=== PATIENT | male | born 1955 | race African-American/Black ===

== ENCOUNTER → 2021-06-12 09:04 | Outpatient (AMBR) | payer OTHER, SELFPAY ==
--- NOTE | 2021-06-05 10:07 | PTNOTE_ITS ---
PT OP Initial Eval Patient Information Visit Reasons: right shoulder post op Medical Diagnosis: Z47.89 Treatment Dx #1: Dec R shoulder ROM Start of Care: 06/05/21 Date of Onset: 04/25/21 Initial Assessment Subjective Pt is 65 yr old male s/p Right shoulder biceps tendinopathy with SLAP tear and right shoulder subacromial impingement about 5 weeks ago. Pt is actively moving the R shoulder with low pain level that comes and goes. He is a side sleeper and can't sleep on the R side. 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 Objective R shoulder AROM: FF 120 deg Abd 90 deg ER 70 deg Hand behind back: to R glute Strength: NT but estimated to be 3-/5 all planes PROM: FF 125 deg Assessment Pt presentation consistent with post op labral repair of R shoulder. Pt has improving AROM with low tissue irritability until he gets to first resistance which is limited by pain. Pt requires skilled therapy to improve ROM, strength and function and has good rehab potential. Short Term and Physiotherapy Aide Goals 1. Ind with HEP 2. Improved AROM of R shoulder to 150 deg FF, 145 deg abduction and 90 deg ER 3. 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 Pt will reach OH x10 with <=4/10 pain Treatment Plan 1. Manual therapy 2. Therex 3. Modalities as indicated, moist heat pack, ice, electrical stimulation? Frequency and Duration 2x a week for 8 weeks Certification Dates: 06/05/21 to 09/03/21 Office Procedures PT Treatments PT Date of Service: 06/05/21 OP PT Eval Mod Complex 30 minutes: Yes
--- NOTE | 2021-06-06 08:52 | PT.ODAYNRPT ---
PT Outpatient Daily Note Date of Service: 06/06/21 OP Daily Note Visit Reasons: right shoulder post op Outpatient Physical Therapy Treatment Date: 06/06/21 Subjective: Pt reports feeling no pain and shoulder is feeling better at initial treatment. Objective: See flow chart for therex. Assessment: Pt tolerated finger ladder with slight pain coming down. Pt required breaks in between therex. Pt had good response to ice pack. Plan: Cont POC. Length of Time (minutes) of Treatment: 30 Minutes Office Procedures PT Treatments PT Date of Service: 06/05/21 OP PT Eval Mod Complex 30 minutes: Yes PT Treatments PT Date of Service: 06/06/21 Therapeutic Exercise 30 minutes: Yes
--- NOTE | 2021-06-12 10:36 | PT.ODAYNRPT ---
PT Outpatient Daily Note Date of Service: 06/12/21 OP Daily Note Visit Reasons: right shoulder post op Outpatient Physical Therapy Treatment Date: 06/12/21 Subjective: Pt reports same as previous visit. Objective: See flow chart for therex. Assessment: Pt has shown better ROM today with pulleys and finger ladders. Pt had good response to ice pack. Pt required multiple rest breaks in between therex. Plan: Cont POC per PT. Length of Time (minutes) of Treatment: 30 Minutes Office Procedures PT Treatments PT Date of Service: 06/05/21 OP PT Eval Mod Complex 30 minutes: Yes PT Treatments PT Date of Service: 06/12/21 Therapeutic Exercise 30 minutes: Yes PT Treatments PT Date of Service: 06/06/21 Therapeutic Exercise 30 minutes: Yes
== END ==
PROVIDERS: PCP Internal Medicine; Referring Provider Internal Medicine; Visit Provider Orthopaedic Surgery
DX: Z47.89 Encounter for other orthopedic aftercare (principal); M25.511 Pain in right shoulder; I10 Essential (primary) hypertension; E11.9 Type 2 diabetes mellitus without complications
CPT/HCPCS: 97110; 97162

== ENCOUNTER 2021-06-18 08:56 | Outpatient (AMBR) | payer OTHER, SELFPAY ==
--- NOTE | 2021-06-12 10:36 | PT.ODAYNRPT ---
PT Outpatient Daily Note Date of Service: 06/12/21 OP Daily Note Visit Reasons: right shoulder post op Outpatient Physical Therapy Treatment Date: 06/12/21 Subjective: Pt reports same as previous visit. Objective: See flow chart for therex. Assessment: Pt has shown better ROM today with pulleys and finger ladders. Pt had good response to ice pack. Pt required multiple rest breaks in between therex. Plan: Cont POC per PT. Length of Time (minutes) of Treatment: 30 Minutes
--- NOTE | 2021-06-18 13:02 | PT.ODAYNRPT ---
PT Outpatient Daily Note Date of Service: 06/18/21 OP Daily Note Visit Reasons: RIGHT SHOULDER POST OP Outpatient Physical Therapy Treatment Date: 06/18/21 Subjective: Pt reports shoulder isn't able to move as well at initial treatment. Pt reports shoulder feels more mobile at end of session. Objective: See flow chart for therex. Assessment: Pt tolerated therex well w/ minimal complaints of pain. Pt required multiple rest breaks and was able to complete reps. Pt R shoulder had good response to hot pack before therex. Plan: Cont POC per PT. Length of Time (minutes) of Treatment: 30 Minutes Office Procedures PT Treatments PT Date of Service: 06/18/21 Therapeutic Exercise 30 minutes: Yes
== END 2021-07-08 23:59 | disposition home or self-care (01) ==
PROVIDERS: PCP Orthopaedic Surgery; Referring Provider Orthopaedic Surgery; Visit Provider Orthopaedic Surgery
DX: Z47.89 Encounter for other orthopedic aftercare (principal); M25.511 Pain in right shoulder; I10 Essential (primary) hypertension; E11.9 Type 2 diabetes mellitus without complications
CPT/HCPCS: 97110

== ENCOUNTER 2021-09-18 08:03 | Outpatient (AMBR) | payer OTHER, SELFPAY ==
--- NOTE | 2021-09-11 08:12 | PT.OIERPT ---
PT OP Initial Eval Patient Information Visit Reasons: right shoulder pain Medical Diagnosis: M75.10 Treatment Dx #1: R shoulder pain Start of Care: 09/11/21 Date of Onset: 04/25/21 Initial Assessment Subjective Pt is 66 yr old male s/p Right shoulder biceps tendinopathy with SLAP tear and right shoulder subacromial impingement about 4.5 months ago. Pt is actively moving the R shoulder with high pain level especially with fast movements. He is a side sleeper and can't sleep on the R side. PMH: HTN, OA, DM Imaging: Xray of R shoulder in EMR Pt goal: to be able to reach up and strengthen R shoulder Objective R shoulder AROM: Strength: FF 90 deg 3+/5 Abd? 90 deg 3+/5 ER 70 deg Hand behind back: to R glute PROM: FF 105 deg Assessment Pt presentation consistent with adhesive capsulitis of R shoulder secondary to labral repair. ROM is limited in capsular pattern. Pt has improving AROM with low tissue irritability until he gets to first resistance which is limited by pain. Pt requires skilled therapy to improve ROM, strength and function and has good rehab potential. Pt encouraged to buy over door shoulder pulleys for home use. Short Term and Superintendent Drivers Goals 1. Ind with HEP 2. Improved AROM of R shoulder to 130 deg FF, 125 deg abduction and 90 deg ER 3. 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 Pt will reach OH x10 with <=4/10 pain Treatment Plan 1. Manual therapy 2. Therex 3. Modalities as indicated, moist heat pack, ice, electrical stimulation? Frequency and Duration 2x a week for 8 weeks Certification Dates: 09/11/21 to 12/08/21 Office Procedures PT Treatments PT Date of Service: 09/11/21 OP PT Eval Mod Complex 30 minutes: Yes
--- NOTE | 2021-09-12 18:19 | PT.ODAYNRPT ---
PT Outpatient Daily Note Date of Service: 09/12/21 OP Daily Note Visit Reasons: right shoulder pain Outpatient Physical Therapy Treatment Date: 09/12/21 Subjective: Same as time of eval Objective: See F/S for therex MT: PPM to first resistance x7' abd, FF, Erot Assessment: Pt has pain at first resistance with manual therapy but good improvement with PROM into ERot. Plan: Improve ROM of R shoulder Length of Time (minutes) of Treatment: 30 Minutes Office Procedures PT Treatments PT Date of Service: 09/12/21 Therapeutic Exercise 30 minutes: Yes PT Treatments PT Date of Service: 09/11/21 OP PT Eval Mod Complex 30 minutes: Yes
--- NOTE | 2021-09-18 10:41 | PT.ODAYNRPT ---
PT Outpatient Daily Note Date of Service: 09/18/21 OP Daily Note Visit Reasons: right shoulder pain Outpatient Physical Therapy Treatment Date: 09/18/21 Subjective: The R shoulder is hurting when he reaches up. Objective: See F/S for therex MT: PPM to first resistance x7' abd, FF, Erot Assessment: Pt has pain at first resistance with manual therapy but good improvement with PROM into ERot to be able to put hand behind head. Plan: Improve ROM of R shoulder Length of Time (minutes) of Treatment: 30 Minutes Office Procedures PT Treatments PT Date of Service: 09/12/21 Therapeutic Exercise 30 minutes: Yes PT Treatments PT Date of Service: 09/18/21 Therapeutic Exercise 30 minutes: Yes PT Treatments PT Date of Service: 09/11/21 OP PT Eval Mod Complex 30 minutes: Yes
--- NOTE | 2021-11-29 16:16 | PT.ODS1RPT ---
PT OP Progress/Discharge Note Date of Service: 11/29/21 Progress Note/DC Note Progress Note/Discharge Note: DC Note Patient Information Visit Reasons: right shoulder pain Service Continue Service or Discharge: Discharge Discharge Date: 11/29/21 Status Assessment: Pt attended the initial evaluation and 2 Rx visits and never returned or called to schedule a follow-up appointment within the past 30 days. Pt?s attendance is not consistent enough to make progress with goals. Pt will be D/C'd according to non-compliance with attendance policy. Plan: D/C Office Procedures PT Treatments PT Date of Service: 09/12/21 Therapeutic Exercise 30 minutes: Yes PT Treatments PT Date of Service: 09/18/21 Therapeutic Exercise 30 minutes: Yes PT Treatments PT Date of Service: 09/11/21 OP PT Eval Mod Complex 30 minutes: Yes
== END 2021-10-08 23:59 | disposition home or self-care (01) ==
PROVIDERS: PCP Orthopaedic Surgery; Referring Provider Orthopaedic Surgery; Visit Provider Orthopaedic Surgery
DX: M25.511 Pain in right shoulder (principal)
CPT/HCPCS: 97110; 97162

== ENCOUNTER 2024-12-16 10:49 | Day surgery (SDC) | payer OTHER, SELFPAY ==
[2024-12-14 15:21] VITALS: BMI 43.1
--- NOTE | 2024-12-15 11:43 | EKG_ITS ---
[facility] Test Date: 2024-12-15 Pat Name: QUANG HERNANDEZ Department: Room: - Gender: Male Biometrics Technician: LYNETTE : 1955 Requested By: Roque Gonzalez Order Number: [id number] Reading MD: Roque Gonzalez Measurements Intervals [place] Rate: 67 P: [place]: QRS: -3 QRSD: 100 T: 50 QT: 398 QTc: 423 Interpretive Statements SUPRAVENTRICULAR RHYTHM PROBABLE INFERIOR MYOCARDIAL INFARCTION , PROBABLY OLD [35 ms Q WAVE IN II/aVF] Compared to ECG 03/20/2021 12:20:17 Supraventricular rhythm now present Sinus bradycardia no longer present Sinus arrhythmia no longer present First degree AV block no longer present Myocardial infarct finding still present /store/S0/[id number]/[id number].pdf
[2024-12-15 12:30] LABS: Basophils % (Auto) 0 % (0-2.5); Eosinophils # (Auto) 0.2 Thou/mm3 (0.0-0.5); Eosinophils % (Auto) 2 % (0-10); Hematocrit 40.3 % (41.0-53.0); Hemoglobin 13.3 g/dL (13.5-16.0); Immature Granulocytes % (Auto) 0 % (0-0); Immature Granulocytes Auto 0.02 Thou/mm3 (0.00-0.00); Lymphocytes # (Auto) 1.5 Thou/mm3 (1.0-4.8); Lymphocytes % (Auto) 19 % (10-50); Mean Corpuscular Hemoglobin 28.9 pg (25.0-35.0); Mean Corpuscular Volume 87 fL (80-100); Monocytes # (Auto) 0.6 Thou/mm3 (0.0-0.8); Monocytes % (Auto) 8 % (0-12); Neutrophils # (Auto) 5.5 Thou/mm3 (1.8-7.7); Neutrophils % (Auto) 70 % (37-80); Nucleated Red Blood Cell % 0 /100 WBC (0); Platelet Count 173 Thou/mm3 (140-440); RDW Standard Deviation 42.6 fL (35.1-43.9); Red Blood Count 4.61 Miln/mm3 (4.50-5.90); White Blood Count 7.8 Thou/mm3 (3.8-10.6)
[2024-12-15 12:36] LABS: Anion Gap 6 (7-16); BUN/Creatinine Ratio 14 Ratio (12-20); Blood Urea Nitrogen 19 mg/dL (9-23); Carbon Dioxide 26.9 mMol/L (20.0-31.0); Chloride 104 mMol/L (98-107); Creatinine (Component) 1.4 mg/dL (0.6-1.3); Estimated Creatinine Clearance 76.6 mL/min (>60); Glucose 239 mg/dL (74-106); Osmolality,Calculated 284 (275-295); Sodium 137 mMol/L (136-145); eGFR 54 See Note
[2024-12-15 12:37] LABS: Partial Thromboplastin Time 30.6 Seconds (22.0-36.0); Prothrombin Time 10.9 Seconds (9.0-12.2)
[2024-12-16] VITALS (12 sets, daily range): BP systolic 107–154; BP diastolic 64–93; PULSE 53–71; RESP 12–21; TEMP 36.2–36.8; O2SAT 95–99; BMI 42.4
--- NOTE | 2024-12-16 16:28 | PC.NURSE ---
1437 patient is awake, alert, breathing unlabored, s/p LHC by Dr. Gonzalez. TR band present to right wrist, no bleeding or hematoma noted. Report received from Sun[facility] LOOMIS, Right radial [facility] unsuccesful. Pt has dressing to right groin, no bleeding or hematoma noted, patient had angioseal closure device and can be discharged home 2hrs post groin hemostasis and 1hr post TR band removal. 1610 TR band removed to right wrist, no bleeding or hematoma noted. pt ate sandwitch with no nausea or vomiting
--- NOTE | 2024-12-16 17:08 | ESOP_ITS ---
Cardiac Cath Procedure Procedure Name Date of procedure: 12/16/2024 HEALTH SUPPORT SPECIALIST: Roque Gonzalez MD PROCEDURE PERFORMED: 1. Left heart cardiac catheterization including right, left coronary angiograms and left ventriculogram 2. Ultrasound-guided access of the right radial artery and right femoral artery. 3. Conscious sedation for 30 minutes. Procedure Narrative HISTORY AND INDICATIONS: A 69-year-old male with PMHx of moderate to severe CAD in LAD and RCA by [facility] 12/16/24, HTN, DM, history of smoking, HLD, depression, osteoarthritis and BPH. Patient initially presented to my office for evaluation of shortness of breath. Patient had ischemic work up and showed decreased uptake in the inferior and inferoapical segments, which are worse with stress compared to the rest, patient was brought in for an elective cardiac catheterization. Patient was explained the risk benefits and alternatives of performing a left heart cardiac catheterization including the risk of bleeding, heart attack, stroke and in detail and the agreeable for the procedure. Consent signed, placed in the chart and H&P updated. DESCRIPTION OF PROCEDURE: The patient was brought to the cardiac catheterization lab and all asceptic precautions were followed. Patient was given 1 Mg of Vers ed and 50 mcg of fentanyl for moderate conscious sedation. 2 mL of lidocaine was given in the right wrist. The right radial artery was accessed via the ultrasound guidance as well as micropuncture technique. A 6 [place] glide sheath was introduced. We then used a 5 [place] TIG 4 catheter to perform left ventriculogram. We were unable to get coronary angiogram and groin access was pursued. 10 mL of lidocaine was given in the right groin. The right femoral artery was accessed via the ultrasound guidance as well as micropuncture technique. A 5 [place] glide sheath was introduced. We then used a 5 [place] FL 4 and FR 4 catheter to perform right and left coronary angiogram. 1. Left ventricular ejection fraction was normal at 60 to 65% without any regional wall motion abnormalities. LVEDP was normal at 9 mmHg. There was no significant transvalvular aortic gradient. 2. Right dominant circulation 3. Left main artery is a large-caliber vessel without any significant stenosis. 4. LAD is a large sized artery with a medium size diagonal and without show any significant disease. 5. LCx is a large sized artery with medium OM1 and small OM2 without any significant disease. 6. RCA is a large artery with medium RPDA and RPL without any significant disease. A radial band was used to achieve the hemostasis of the right radial artery access. A femoral angioseal device was used to achieve the hemostasis of the right femoral artery access. Patient will be monitored in the cardiac tank car loader for the next 2 to 3 hours and will be discharged home / telemetry later today if hemodynamically stable. Complications: None Specimens: None Blood loss: Estimated 5-10 ml Summary/findings: 1. Abnornal Stress test: 2. LVEF was normal at 60-65% and normal LVEDP of 10 mmHg. No transvalvular aortic gradient. Recommendations: 1. Recommended aggressive risk factor modification and aggressive medical treatment 2. Recommended no lifting more than 5 pounds for next 7-10 days and follow up in my office in 7 days. Roque Gonzalez MD Interventional Cardiology.
--- NOTE | 2024-12-16 17:40 | PC.NURSE ---
1738 patient is awake, alert, breathing unlabored, dressing to right wrist and right groin dry with no bleeding or hematoma. patient able to eat sandwich with no nausea or vomiting, able to ambulate to bathroom and void, meets discharge criteria, discharge instructions given to patient and friend stephen, patient discharged home in wheelchair with all belongings.
== END 2024-12-16 17:38 | disposition home or self-care (01) ==
PROVIDERS: PCP Internal Medicine; Referring Provider Internal Medicine Cardiovascular Disease; Visit Provider Internal Medicine Cardiovascular Disease
PROC: (CPT 75600; principal; 2024-12-16 12:00)
DX: I25.118 Atherosclerotic heart disease of native coronary artery with other forms of angina pectoris (principal); E11.9 Type 2 diabetes mellitus without complications; E78.5 Hyperlipidemia, unspecified; I10 Essential (primary) hypertension; N40.0 Benign prostatic hyperplasia without lower urinary tract symptoms; E66.01 Morbid (severe) obesity due to excess calories; Z68.42 Body mass index [BMI] 45.0-49.9, adult; Z01.810 Encounter for preprocedural cardiovascular examination
CPT/HCPCS: 93458; 36415; 80048; 85025; 85610; 85730; 93005; 99152; 99153; A4649; C1760; C1769; C1887; C1894; J0171; J0461; J1643; J2250; J2310; J3010; J3490; J7050; Q9967; J2305

== ENCOUNTER 2025-01-26 11:52 | Inpatient (IN) | payer OTHER, MEDICARE, SELFPAY ==
[2025-01-24 12:36] VITALS: BMI 43.1
--- NOTE | 2025-01-25 07:00 | EKG_ITS ---
[facility] Test Date: 2025-01-25 Pat Name: QUANG HERNANDEZ Department: Room: - Gender: Male Multi Sensor Operator: BERNARD : 1955 Requested By: Roque Gonzalez Order Number: [id number] Reading MD: Roque Gonzalez Measurements Intervals [place] Rate: 65 P: 50 NV: 246 QRS: 40 QRSD: 95 T: 30 QT: 378 QTc: 393 Interpretive Statements SINUS RHYTHM WITH FIRST DEGREE AV BLOCK LOW QRS VOLTAGE IN PRECORDIAL LEADS [QRS DEFLECTION < 1.0 mV IN CHEST LEADS] INCOMPLETE RIGHT BUNDLE BRANCH BLOCK [90+ ms QRS DURATION, TERMINAL R IN V1/V2, 40+ ms S IN I/aVL/V4/V5/V6] Compared to ECG 12/15/2024 12:16:58 First degree AV block now present Low QRS voltage now present Incomplete right bundle-branch block now present Supraventricular rhythm no longer present Myocardial infarct finding no longer present /store/S0/[id number]/[id number].pdf
[2025-01-25 11:57] LABS: Basophils % (Auto) 1 % (0-2.5); Eosinophils # (Auto) 0.2 Thou/mm3 (0.0-0.5); Eosinophils % (Auto) 3 % (0-10); Hematocrit 36.4 % (41.0-53.0); Hemoglobin 12.3 g/dL (13.5-16.0); Immature Granulocytes % (Auto) 1 % (0-0); Immature Granulocytes Auto 0.03 Thou/mm3 (0.00-0.00); Lymphocytes # (Auto) 1.2 Thou/mm3 (1.0-4.8); Lymphocytes % (Auto) 19 % (10-50); Mean Corpuscular HGB Conc 33.8 g/dl (31.0-37.0); Mean Corpuscular Hemoglobin 29.2 pg (25.0-35.0); Mean Corpuscular Volume 87 fL (80-100); Monocytes # (Auto) 0.5 Thou/mm3 (0.0-0.8); Monocytes % (Auto) 8 % (0-12); Neutrophils # (Auto) 4.5 Thou/mm3 (1.8-7.7); Neutrophils % (Auto) 70 % (37-80); Nucleated Red Blood Cell % 0 /100 WBC (0); Platelet Count 164 Thou/mm3 (140-440); RDW Standard Deviation 41.4 fL (35.1-43.9); Red Blood Count 4.21 Miln/mm3 (4.50-5.90); White Blood Count 6.4 Thou/mm3 (3.8-10.6)
[2025-01-25 12:05] LABS: Anion Gap 10 (7-16); BUN/Creatinine Ratio 15 Ratio (12-20); Blood Urea Nitrogen 21 mg/dL (9-23); Calcium 8.7 mg/dL (8.3-10.6); Carbon Dioxide 25.4 mMol/L (20.0-31.0); Chloride 105 mMol/L (98-107); Creatinine (Component) 1.4 mg/dL (0.6-1.3); Estimated Creatinine Clearance 76.6 mL/min (>60); Glucose 149 mg/dL (74-106); Osmolality,Calculated 285 (275-295); Partial Thromboplastin Time 30.1 Seconds (22.0-36.0); Potassium 3.7 mMol/L (3.4-5.1); Prothrombin Time 10.9 Seconds (9.0-12.2); Sodium 140 mMol/L (136-145); eGFR 54 See Note
[2025-01-26] VITALS (23 sets, daily range): BP systolic 128–170; BP diastolic 75–105; PULSE 59–85; RESP 13–97; TEMP 36.2–36.7; O2SAT 94–99; BMI 43.1
--- NOTE | 2025-01-26 07:30 | CHAP ---
Prayed with patient before his procedure.
[2025-01-26] MEDS: Aspirin 325 MG TABLET PO (07:39)
[2025-01-26] MEDS: EPTIFIBATIDE IVPB 75 MG/100 ML VIAL 24.394 MG IV (11:15)
[2025-01-26] MEDS: EPTIFIBATIDE 22.6 MG IV (11:16)
[2025-01-26] MEDS: SODIUM CHLORIDE 0.45 % 500 ML 100 ML IV ×2 (11:49→17:45)
[2025-01-26] MEDS: ONDANSETRON INJ 2 MG/ML INJ 2 ML 4 MG IV (11:52)
--- NOTE | 2025-01-26 12:36 | PC.NURSE ---
dressing oozing due to patient moving and applying pressure on leg. patient educated about the importance of keeping leg straight. shadowing outlined. site is soft, flat, nontender, and no hematoma present.
--- NOTE | 2025-01-26 13:06 | PD.RESHP ---
Documentation for date of: 01/26/25 HPI History of Present Illness Chief complaint: s/p PCI History of present illness: 69-year-old male smoker with past medical history of moderate to severe CAD in LAD and RCA by [facility] 12/16/24, Hypertension, Diabetes, Hyperlipidemia, depression, osteoarthritis and BPH. Patient initially presented to the property management bookkeeper office for evaluation of shortness of breath. Patient had ischemic work up and showed decreased uptake in the inferior and inferoapical segments, which are worse with stress compared to the rest, patient was brought in for an elective cardiac catheterization. Patient had Left heart cardiac catheterization including right, left coronary angiograms and left ventriculogram on 12/16/2024 and findings included Left ventricular ejection fraction was normal at 60 to 65% without any regional wall motion abnormalities. LVEDP was normal at 9 mmHg. There was no significant transvalvular aortic gradient. Right dominant circulation. Left main artery is a large-caliber vessel without any significant stenosis. LAD is a large sized artery with a medium size diagonal and without show any significant disease. LCx is a large sized artery with medium OM1 and small OM2 without any significant disease. RCA is a large artery with medium RPDA and RPL without any significant disease. Patient had complex PCI today 01/26/2025 with stent placement in proximal LAD after which patient was admitted to telemetry for observation on integrillin drip. PMHx: as above SxHx: B/l Shoulder subacromial decompression Allergies: Penicillin(swelling and rash) FH: Mother has unknown cardiac hx, at 78yo, Father-cirrhosis, daughter- unknown cancer SH:Social drinker, denies smoking or other drug use. Marijuana use as young adult Review of Systems Review of Systems Systems Reviewed: All systems reviewed, normal except as documented Narrative Review of Systems: All 12 systems reviewed and are benign unless otherwise stated in HPI. Exam Vital Signs Temp Pulse Resp BP Pulse Ox O2 Del Method 98.1 F 63 18 159/99 H 96 Room Air 01/26/25 11:15 01/26/25 13:00 01/26/25 13:00 01/26/25 13:00 01/26/25 13:00 01/26/25 13:00 Narrative Exam Physical Exam GENERAL: NAD, AAOx3 HEENT: Moist mucosa. Eyes open, symmetrical, & clear CARDIO: Heart RRR, no obvious murmurs PULM: No noted coughing/dyspnea CTA B/L, no R/W/R GI: Abdomen soft, nondistended, no pain on palpation. BSx4 SKIN/MSK/EXT: No wounds/rashes/edema/amputations, no pain on palpation. Pedal pulses present B/L NEURO: AAOx3, no focal neuro deficits, able to move all 4 extremities Results: Labs 01/27/25 04:43 01/27/25 04:43 Quality Measures Quality Measures VTE prophylaxis Advance care planning discussed with:: patient Medications Home Medications and Allergies Home Medications ?Medication ?Instructions ?Recorded ?Confirmed ?Type aspirin 81 mg tablet,delayed 81 mg PO QDAY 08/22/20 01/26/25 History release glipizide 10 mg tablet 10 mg PO BID 08/22/20 01/26/25 History finasteride 5 mg tablet 5 mg PO QDAY 01/13/24 01/26/25 History insulin glargine 100 unit/mL (3 30 unit subcut HS 12/16/24 01/26/25 History mL) subcutaneous pen (Lantus Solostar U-100 Insulin) nifedipine 90 mg tablet,extended 90 mg PO QDAY 12/16/24 01/26/25 History release paroxetine HCl 20 mg tablet 20 mg PO DAILY 12/16/24 01/26/25 History tamsulosin 0.4 mg capsule 0.4 mg PO DAILY 12/16/24 01/26/25 History Allergies Allergy/AdvReac Type Severity Reaction Status Date / Time Penicillins Allergy Severe SWELLING Verified 01/26/25 13:52 AND RASH Visit Medications Acetaminophen (Acetaminophen 325 Mg Tablet) 650 mg PO Q4HR PRN PRN Reason: HEADACHE Stop: 02/25/25 11:38 Acetaminophen (Acetaminophen 325 Mg Tablet) 650 mg PO Q6H PRN PRN Reason: Fever >101.5 Stop: 02/25/25 11:51 Aspirin (Aspirin Ec 81 Mg Tabec) 81 mg PO QDAY SURINDER Stop: 02/26/25 08:59 Sodium Chloride (Ns 0.45%) 500 mls @ 100 mls/hr IV .Q5H SURINDER Stop: 02/25/25 11:44 Last Admin: 01/26/25 11:49 Dose: 100 mls/hr Eptifibatide (Integrilin Ivpb) 75 mg in 100 mls @ 24.394 mls/hr IV X1 ONE Stop: 01/26/25 15:20 Last Admin: 01/26/25 11:15 Dose: 2 mcg/kg/min, 24.394 mls/hr Ondansetron HCl (Ondansetron Inj 2 Mg/Ml Inj 2 Ml) 4 mg IV Q6H PRN; Protocol PRN Reason: NAUSEA OR VOMITING Stop: 02/25/25 11:51 Ticagrelor (Ticagrelor 90 Mg Tablet) 90 mg PO BID SURINDER Stop: 02/26/25 08:59 Discontinued Medications Aspirin (Aspirin 325 Mg Tablet) 325 mg PO X1 ONE Stop: 01/26/25 07:36 Last Admin: 01/26/25 07:39 Dose: 325 mg Eptifibatide (Eptifibatide Inj 2 Mg/Ml Vial 10 Ml) 22.6 mg IV X1 ONE Stop: 01/26/25 11:17 Last Admin: 01/26/25 11:16 Dose: 22.6 mg Ondansetron HCl (Ondansetron Inj 2 Mg/Ml Inj 2 Ml) 4 mg IV Q6HR PRN PRN Reason: NAUSEA OR VOMITING Stop: 02/25/25 11:38 Last Admin: 01/26/25 11:52 Dose: 4 mg Assessment & Plan Plan 69-year-old male smoker with past medical history of moderate to severe CAD in LAD and RCA by [facility] 12/16/24, Hypertension, Diabetes, Hyperlipidemia, depression, osteoarthritis and BPH. Patient initially presented to the property management bookkeeper office for evaluation of shortness of breath. Patient had ischemic work up and showed decreased uptake in the inferior and inferoapical segments, which are worse with stress compared to the rest, patient was brought in for an elective cardiac catheterization. Patient had Left heart cardiac catheterization including right, left coronary angiograms and left ventriculogram on 12/16/2024. Patient had complex PCI today with stent placement in LAD after which patient was admitted to telemetry for observation on integrillin drip after complex PCI with stent placement in proximal LAD. #Coronary artery disease #s/p PCI with stent placement in proximal LAD #hypertension Cath 12/16/2024 Left ventricular ejection fraction was normal at 60 to 65% without any regional wall motion abnormalities. LVEDP was normal at 9 mmHg. There was no significant transvalvular aortic gradient. Right dominant circulation. Left main artery is a large-caliber vessel without any significant stenosis. LAD is a large sized artery with a medium size diagonal and without show any significant disease. LCx is a large sized artery with medium OM1 and small OM2 without any significant disease. RCA is a large artery with medium RPDA and RPL without any significant disease. - pending cath report - monitor telemetry - Keep K>4, Mg>2 - on integrillin drip for 12 hours, loading doses given - ASA and Brillinta loading doses given - resumed Aspirin 81mg and brillinta 90mg bid in am - resume anti hypertensives in am #BETITO on CKD stage IIIa - on IVFs - renally dose medicaiton - avoid nephrotoxins #BPH - on tamsulosin and finesteride #Diabetes mellitus - SSI - hypoglycemia protocol in place #Hx of depression -resumed paroxetine as taken at home Disposition:tele, obs s/p pci Fluids: NS Feeding: Cardiac diet Thrombo prophylaxis: Gastric Ulcer prophylaxis: none CODE STATUS: Full code Case discussed with my attending Dr. Christine Cope MD PGY-1 Attending Provider Attestation/Addendum 69-year-old male with multiple comorbidities including hypertension, type 2 diabetes mellitus, hyperlipidemia with moderate to severe CAD in LAD and RCA (left heart cath on 12/16/2024) who presented to property management bookkeeper office for shortness of breath and had ischemic workup which showed decrease uptake in the inferior and inferoapical segment subsequently underwent elective cardiac catheterization. As a result, patient is status post left heart cath on 01/26/2025 with stent placement in the proximal LAD subsequently started on Integrilin drip and internal medicine was consulted for admission. As of now, plan to continue Integrilin drip, aspirin and Plavix and appreciate cardiology input. Anticipate discharge in the next 24-48 hours.I reviewed above note and agree with findings and plans. I have also personally examined the patient with medicine team and went over assessment and plan with medical team including staff internist office based only and resident physician.
[2025-01-26] MEDS: EPTIFIBATIDE IVPB 75 MG/100 ML VIAL 20.003 MG IV ×2 (15:26→21:10)
--- NOTE | 2025-01-26 16:01 | PC.NURSE ---
1315 patient is awake, alert, breathing unlabored, s/p LHC, PCI by Dr. Gonzalez, dressing to right groin dry with no bleeding or hematoma. Report received from Jacqueline LOOMIS, patient to be admitted to [facility] bed, waiting for bed assignment. Patient currently on integrillin drip 20ml/hr to be continued for 12 hours from start time. aspirin due tomorrow, brinta due tonight. 1400 small amount of oozing to right groin, dressing changed, leslee pad applied. 1454 patient is awake, alert, breathing unlabored, dressing to right groin dry with no active bleeding, report has been given to Earline LOOMIS, patient transferred to room 266 with patient belongings. Son Peter called and made aware of room number patient is admitted to.
--- NOTE | 2025-01-26 17:47 | PD.RESCONSUL ---
HPI Data of Consult Requesting Physician: Roque Gonzalez MD Admitting Provider: Marti King MD Attending Provider: Roque Gonzalez MD Primary Care Provider: Carol Strickland MD Consult Narrative History of present illness: A 69-year-old male PMHx of CAD, HTN, T2DM, HLD, depression, osteoarthritis, severe morbiid obesity > 155 kg and > 350 pounds and BPH. He was seen in outpatient cardiology for evaluation of SOB. He had an abnormal NST with decreased uptake in anterior apical, inferior apical and apical segments indicating reversible ischemia, it showed TID 1.0 and EF is 52%. He had LHC on 12/16/24 showing moderate to severe CAD in LAD and moderate disease in RCA. PCI could not be done during the cath as left main artery could not be engaged well and images were suboptimal which was only made difficult due to his morbid obesity. Elective LHC and PCI was planned at a later date after ordering the longer diagnostic and guide catheters, other equipment requireed for the procedure. Pt contiued to chest pain and SOB and hence he was brought in for elective LHC and PCI today after we received the new equipment. Given these findings, the patient underwent a complex LHC today, resulting in successful PCI stent placement in the proximal LAD and distal LAD. The distal LAD near the apex had possible thrombus and was admitted to telemetry as patient was started on an INTEGRILIN drip for treatment. PMHx: as above SxHx: B/l Shoulder subacromial decompression Allergies: Penicillin(swelling and rash) FH: Mother has unknown cardiac hx, at 78yo, Father-cirrhosis, daughter- unknown cancer SH:Social drinker, denies smoking or other drug use. Marijuana use as young adult. Currently, he remains hemodynamically stable, BP 159/93, HR 65, satting 98% on room air. CHEM panel remarkable for creatinine 1.4 (baseline 1.0), BUN 21, GLUCOSE 149, remainder panel WNL. CBC showed Hgb 12.3, PLT 164, WBC 6.4. Coag panel normal, activated clotting time 278. EKG at 11 AM showed sinus rhythm with first-degree AV block, low QRS voltage in pericardial lead, incomplete RBBB, no acute ST changes. He had mild tenderness and possibly small hematoma at the femoral cath incision line. Recommended admission and close observation for the next 12 hours while on INTEGRILIN. cc:: cc: Roque Gonzalez MD Exam Vital Signs Temp Pulse Resp BP Pulse Ox O2 Del Method 97.9 F 65 14 159/93 H 98 Room Air 01/26/25 14:00 01/26/25 15:26 01/26/25 14:45 01/26/25 15:26 01/26/25 14:45 01/26/25 14:45 Narrative Exam GENERAL: Obese male, NAD, AAOx3 HEENT: Moist mucosa. Eyes open, symmetrical, & clear CARDIO: Heart RRR, no obvious murmurs PULM: No noted coughing/dyspnea CTA B/L, no R/W/R GI: Abdomen soft, nondistended, no pain on palpation. BSx4 SKIN/MSK/EXT: No wounds/rashes/edema/amputations, no pain on palpation. Pedal pulses present B/L. Mild tenderness and swelling of right antecubital. NEURO: AAOx3, no focal neuro deficits, able to move all 4 extremities Results Labs 01/25/25 11:05 01/25/25 11:05 Quality Measures Quality Measures VTE prophylaxis Advance care planning discussed with:: patient Medications Home Medications and Allergies Home Medications ?Medication ?Instructions ?Recorded ?Confirmed ?Type aspirin 81 mg tablet,delayed 81 mg PO QDAY 08/22/20 01/26/25 History release glipizide 10 mg tablet 10 mg PO BID 08/22/20 01/26/25 History finasteride 5 mg tablet 5 mg PO QDAY 01/13/24 01/26/25 History amlodipine 10 mg tablet 10 mg PO QDAY 12/16/24 01/26/25 History carvedilol 25 mg tablet 25 mg PO BID 12/16/24 01/26/25 History insulin glargine 100 unit/mL (3 30 unit subcut HS 12/16/24 01/26/25 History mL) subcutaneous pen (Lantus Solostar U-100 Insulin) nifedipine 90 mg tablet,extended 90 mg PO QDAY 12/16/24 01/26/25 History release paroxetine HCl 20 mg tablet 20 mg PO DAILY 12/16/24 01/26/25 History tamsulosin 0.4 mg capsule 0.4 mg PO DAILY 12/16/24 01/26/25 History Allergies Allergy/AdvReac Type Severity Reaction Status Date / Time Penicillins Allergy Severe SWELLING Verified 01/26/25 13:52 AND RASH Visit Medications Acetaminophen (Acetaminophen 325 Mg Tablet) 650 mg PO Q4HR PRN PRN Reason: HEADACHE Stop: 02/25/25 11:38 Acetaminophen (Acetaminophen 325 Mg Tablet) 650 mg PO Q6H PRN PRN Reason: Fever >101.5 Stop: 02/25/25 11:51 Amlodipine Besylate (Amlodipine Besylate 5 Mg Tablet) 10 mg PO QDAY [facility] Stop: 02/26/25 08:59 Aspirin (Aspirin Ec 81 Mg Tabec) 81 mg PO QDAY [facility] Stop: 02/26/25 08:59 Carvedilol (Carvedilol 12.5 Mg Tablet) 25 mg PO BID [facility] Stop: 02/26/25 08:59 Dextrose (Dextrose 50%-Water Inj 50 Ml Syringe) 25 ml IV Q15MIN PRN PRN Reason: BG 50-70 responsive npo pt Stop: 02/25/25 16:33 Dextrose (Dextrose 50%-Water Inj 50 Ml Syringe) 50 ml IV Q15MIN PRN PRN Reason: BG <50 OR BG <70 & pt unresponsive Stop: 02/25/25 16:33 Finasteride (Finasteride 5 Mg Tablet) 5 mg PO QDAY [facility] Stop: 02/26/25 08:59 Glucagon (Glucagon Inj 1 Mg Vial) 1 mg IM Q15MIN PRN PRN Reason: BG <70, and no IV access Eptifibatide (Integrilin Ivpb) 75 mg in 100 mls @ 20.003 mls/hr IV Q5H [facility] Stop: 01/26/25 23:15 Last Admin: 01/26/25 15:26 Dose: 1.64 mcg/kg/min, 20.003 mls/hr Sodium Chloride (Ns 0.45%) 500 mls @ 100 mls/hr IV .Q5H SURINDER Stop: 02/25/25 11:44 Last Admin: 01/26/25 17:45 Dose: 100 mls/hr Insulin Human Lispro (Insulin Lispro (Admelog) 1 Unit/0.01 Ml Unit) 0 unit SC AC [facility]; Protocol Stop: 02/25/25 16:59 Last Admin: 01/26/25 17:42 Dose: Not Given Nifedipine (Nifedipine Xl 30 Mg Tabcr) 90 mg PO QDAY [facility] Stop: 02/26/25 08:59 Ondansetron HCl (Ondansetron Inj 2 Mg/Ml Inj 2 Ml) 4 mg IV Q6H PRN; Protocol PRN Reason: NAUSEA OR VOMITING Stop: 02/25/25 11:51 Paroxetine HCl (Paroxetine Hcl 10 Mg Tablet) 20 mg PO DAILY [facility] Stop: 02/26/25 08:59 Tamsulosin HCl (Tamsulosin Hcl 0.4 Mg Capsule) 0.4 mg PO DAILY [facility] Stop: 02/26/25 08:59 Ticagrelor (Ticagrelor 90 Mg Tablet) 90 mg PO BID [facility] Stop: 02/25/25 20:59 Discontinued Medications Aspirin (Aspirin 325 Mg Tablet) 325 mg PO X1 ONE Stop: 01/26/25 07:36 Last Admin: 01/26/25 07:39 Dose: 325 mg Eptifibatide (Eptifibatide Inj 2 Mg/Ml Vial 10 Ml) 22.6 mg IV X1 ONE Stop: 01/26/25 11:17 Last Admin: 01/26/25 11:16 Dose: 22.6 mg Sodium Chloride (Ns 0.45%) 500 mls @ 100 mls/hr IV .Q5H [facility] Stop: 02/25/25 11:44 Last Admin: 01/26/25 17:44 Dose: Not Given Eptifibatide (Integrilin Ivpb) 75 mg in 100 mls @ 24.394 mls/hr IV X1 ONE Stop: 01/26/25 15:20 Eptifibatide (Integrilin Ivpb) 75 mg in 100 mls @ 24.394 mls/hr IV X1 [facility] Stop: 01/27/25 00:00 Eptifibatide (Integrilin Ivpb) 75 mg in 100 mls @ 20.003 mls/hr IV X1 ONE Stop: 01/26/25 16:14 Last Admin: 01/26/25 11:15 Dose: 2 mcg/kg/min, 24.394 mls/hr Ondansetron HCl (Ondansetron Inj 2 Mg/Ml Inj 2 Ml) 4 mg IV Q6HR PRN PRN Reason: NAUSEA OR VOMITING Stop: 02/25/25 11:38 Last Admin: 01/26/25 11:52 Dose: 4 mg Ticagrelor (Ticagrelor 90 Mg Tablet) 90 mg PO BID [facility] Stop: 02/26/25 08:59 Assessment & Plan Plan 69-year-old male PMHx of CAD, HTN, T2DM, HLD, depression, osteoarthritis and BPH. A 69-year-old male PMHx of CAD, HTN, T2DM, HLD, depression, osteoarthritis, severe morbiid obesity > 155 kg or > 350 pounds and BPH. He was seen in outpatient cardiology for evaluation of SOB. He had an abnormal NST with decreased uptake in anterior apical, inferior apical and apical segments indicating reversible ischemia, it showed TID 1.0 and EF is 52%. He had LHC on 12/16/24 showing moderate to severe CAD in LAD and moderate disease in RCA. Pt continued to chest pain and SOB and hence he was brought in for elective LHC and PCI today after we received the new equipment. Patient is s/p left heart cath earlier this morning, admitted for close observation and INTEGRILIN drip. Severe CAD s/p PCI with stent placement in proximal LAD HTN A 69-year-old male with a history of coronary artery disease (CAD), hypertension (HTN), type 2 diabetes mellitus (T2DM), hyperlipidemia (HLD), depression, osteoarthritis, and benign prostatic hyperplasia (BPH) presented with shortness of breath (SOB). His outpatient cardiology evaluation showed an abnormal NST with a TID of 1.0 and an ejection fraction (EF) of 52%. A left heart catheterization (LHC) on 12/16/24 revealed moderate to severe CAD in the left anterior descending (LAD) and moderate disaese of right coronary artery (RCA) PCI could not be done during the cath as left main artery could not be engaged well and images were suboptimal which was only made difficult due to his morbid obesity. Elective LHC and PCI was planned at a later date after ordering the longer diagnostic and guide catheters, other equipment requireed for the procedure. Pt contiued to chest pain and SOB and hence he was brought in for elective LHC and PCI today after we received the new equipment. Given these findings, the patient underwent a complex LHC today, resulting in successful PCI stent placement in the proximal LAD and distal LAD. The distal LAD near the apex had possible thrombus and was admitted to telemetry as patient was started on an INTEGRILIN drip for treatment. ? Telemetry monitoring ? Continue INTEGRILIN drip for 12 hours. ? Continue ASPIRIN daily and BRILINTA BID ? Continue AMLODIPINE 10 mg daily ? Maintain K > 4.0 and Mg > 2.0 HTN - On 3 meds at home. Will restart only nifedipine tonight if need and SBP > 150 CKD stage IIIa BPH Diabetes mellitus Hx of depression Management of rest of the medical conditions as per primary team and other consultants. Thank you for the consult and allowing me to participate in the care of the patient. Cardiology will continue to follow. Case was discussed with attending, Dr. Gonzalez. Trisha Brown, DO PGYI Attending Provider Attestation/Addendum I have personally seen and examined the patient separately on the above date of service and discussed the plan of care with the resident. I reviewed the resident Dr. Trisha Brown consultation progress note and agree with the resident findings and plan in the note above and have also edited the documentation to reflect my findings and plan. Please see my operative report for further details. Roque Gonzalez M.D. Interventional Cardiology
[2025-01-26] MEDS: TICAGRELOR 90 MG TABLET PO (20:10)
[2025-01-26] MEDS: SODIUM CHLORIDE 0.45 % 500 ML 50 ML IV (20:23)
[2025-01-27] VITALS (12 sets, daily range): BP systolic 95–136; BP diastolic 62–89; PULSE 65–134; RESP 15–99; TEMP 36.1–37.1; O2SAT 96–99
[2025-01-27 05:46] LABS: Basophils % (Auto) 0 % (0-2.5); Eosinophils # (Auto) 0.1 Thou/mm3 (0.0-0.5); Eosinophils % (Auto) 1 % (0-10); Hematocrit 36.6 % (41.0-53.0); Hemoglobin 12.5 g/dL (13.5-16.0); Immature Granulocytes % (Auto) 0 % (0-0); Immature Granulocytes Auto 0.02 Thou/mm3 (0.00-0.00); Lymphocytes # (Auto) 1.1 Thou/mm3 (1.0-4.8); Lymphocytes % (Auto) 13 % (10-50); Mean Corpuscular HGB Conc 34.2 g/dl (31.0-37.0); Mean Corpuscular Hemoglobin 29.6 pg (25.0-35.0); Mean Corpuscular Volume 87 fL (80-100); Monocytes # (Auto) 0.6 Thou/mm3 (0.0-0.8); Monocytes % (Auto) 7 % (0-12); Neutrophils # (Auto) 6.8 Thou/mm3 (1.8-7.7); Neutrophils % (Auto) 79 % (37-80); Nucleated Red Blood Cell % 0 /100 WBC (0); Platelet Count 184 Thou/mm3 (140-440); RDW Standard Deviation 42.4 fL (35.1-43.9); Red Blood Count 4.22 Miln/mm3 (4.50-5.90); White Blood Count 8.7 Thou/mm3 (3.8-10.6)
[2025-01-27] MEDS: SODIUM CHLORIDE 0.45 % 1,000 ML 50 ML IV (05:53)
[2025-01-27 06:09] LABS: Alanine Aminotransferase 16 U/L (10-49); Albumin, Serum 3.9 gm/dL (3.4-4.8); Albumin/Globulin Ratio 1.3 (1.2-2.2); Alkaline Phosphatase 69 U/L (46-116); Anion Gap 12 (7-16); Aspartate Amino Transferase 53 U/L (0-34); BUN/Creatinine Ratio 10 Ratio (12-20); Bilirubin,Total 1.7 mg/dL (0.3-1.2); Blood Urea Nitrogen 14 mg/dL (9-23); Calcium 8.8 mg/dL (8.3-10.6); Calcium (Corrected) 8.9 mg/dL (8.5-10.1); Chloride 100 mMol/L (98-107); Creatinine (Component) 1.4 mg/dL (0.6-1.3); Estimated Creatinine Clearance 75.8 mL/min (>60); Globulin 2.9 gm/dL (2.3-3.5); Glucose 162 mg/dL (74-106); Magnesium 1.8 mg/dL (1.6-2.6); Osmolality,Calculated 276 (275-295); Phosphorous 3.5 mg/dL (2.4-5.1); Potassium 3.4 mMol/L (3.4-5.1); Sodium 136 mMol/L (136-145); Total Protein 6.8 gm/dL (5.7-8.2); eGFR 54 See Note
[2025-01-27 06:29] LABS: Glucose Estimated Average 151 mg/dL (80-131); Hemoglobin A1C 6.9 % Hgb (4.8-6.0)
[2025-01-27] MEDS: INSULIN LISPRO (AdmeLOG) 1 UNIT/0.01 ML UNIT SC ×3 (07:32→17:18)
[2025-01-27] MEDS: ASPIRIN EC 81 MG TABEC PO (08:33)
[2025-01-27] MEDS: FINASTERIDE 5 MG TABLET PO (08:33)
[2025-01-27] MEDS: TICAGRELOR 90 MG TABLET PO ×2 (08:33→20:10)
[2025-01-27] MEDS: TAMSULOSIN HCL 0.4 MG CAPSULE PO (08:33)
[2025-01-27] MEDS: PARoxetine HCL 10 MG TABLET 20 MG PO (08:34)
[2025-01-27] MEDS: NIFEdipine XL 30 MG TABCR 90 MG PO (08:40)
[2025-01-27] MEDS: carVEDILOL 12.5 MG TABLET 25 MG PO (08:40)
[2025-01-27] MEDS: DOCUSATE SOD 250 MG CAPSULE PO (09:06)
[2025-01-27] MEDS: MAGNESIUM CITRATE 300 ML BTL PO (09:07)
--- NOTE | 2025-01-27 09:41 | ESDS_ITS ---
<Statement entered by Marti King MD - 02/06/25 07:22> I reviewed above note and agree with findings and plans. I have also personally examined the patient with medicine team and went over assessment and plan with medical team including internal sales and resident physician. Planned Discharge Date 01/27/25 DS: Providers Provider Date of admission: 01/26/25 11:52 Primary care physician: Carol Strickland MD Admitting Provider: Marti King MD Attending Provider on Admission: Marti iKng MD Attending Provider on DC: Marti King MD Discharging Provider: Julio Cope MD Anticipated date of discharge: 01/27/25 DS: Diagnosis Problem List Completed Was Problem List Reviewed/Reconciled?: Yes Hospital Course Hospital Course Hospital course: 69-year-old male smoker with past medical history of moderate to severe CAD in LAD and RCA by [facility] 12/16/24, Hypertension, Diabetes, Hyperlipidemia, depression, osteoarthritis and BPH. Patient initially presented to the grocery clerk checking office for evaluation of shortness of breath. He had LHC on 12/16/24 showing moderate to severe CAD in LAD and moderate disease in RCA. Pt continued to chest pain and SOB and hence he was brought in for elective LHC and PCI today after we received the new equipment. Patient is s/p left heart cath with stent placement in proximal LAD, admitted for close observation and INTEGRILIN drip which was completed. After which patient was monitored overnight, was diuresed and started on his home medications which were adjusted at the time of discharge. At this time patient is medically stable for discharge. Follow up with primary care physician Dr. Strickland within 1 week of discharge. Follow up with cardiology Dr. Gonzalez within 1 weeks of discharge. No lifting more than 5 pounds for the next 7 to 10 days. You have been prescribed Brillinta take this to reduce risk of stent thrombosis. Your carvedilol dose was adjusted to 12.5mg BID. You have been prescribed atorvastatin 80mg HS. Amlodipine has been discontinued please do not take this medication. Please continue the rest of your medications as prescribed. Should any symptoms recur or worsen patient is instructed to return to the ED. Problem List: Severe CAD s/p PCI with stent placement in proximal LAD Hypertension CKD stage IIIa BPH Diabetes mellitus Hx of depression Case discussed with my attending Dr. Christine Cope MD PGY-1 Status at Discharge Functional status at discharge: independent ambulation Overall status at discharge: patient is progressing back to baseline Time Spent with Patient Time attestation: Total time spent providing and/or coordinating discharge services: Time spent: Greater than 30 minutes Exam Vital Signs Temp Pulse Resp BP Pulse Ox O2 Del Method 97.5 F 130 H 20 117/89 H 96 Room Air 01/27/25 08:00 01/27/25 08:40 01/27/25 08:00 01/27/25 08:40 01/27/25 08:00 01/27/25 08:00 Narrative Exam Physical Exam GENERAL: NAD, AAOx3, morbidly obese HEENT: Moist mucosa. Eyes open, symmetrical, & clear CARDIO: Heart RRR, no obvious murmurs PULM: No noted coughing/dyspnea CTA B/L, no R/W/R- examination limited due to body habitus GI: Abdomen soft, nondistended, no pain on palpation. BSx4 SKIN/MSK/EXT: No wounds/rashes/edema/amputations, no pain on palpation. Pedal pulses present B/L NEURO: AAOx3, no focal neuro deficits, able to move all 4 extremities Discharge Plan Plan Patient Disposition: HOME (Self Care) Care Plan Goals: Follow up with primary care physician Dr. Strickland within 1 week of discharge Follow up with cardiology within 1 weeks of discharge. No lifting more than 5 pounds for the next 7 to 10 days You have been prescribed atorvastatin 80mg qpm, brillinta to prevent stent thrombosis Your carvedilol dose has been adjusted to 12.5mg BID Please continue the rest of your medications as prescribed. Should any symptoms recur or worsen patient is instructed to return to the ED. Prescriptions/Referrals Prescriptions/Med Rec: New ticagrelor [Brilinta] 90 mg tablet 90 mg PO BID Qty: 60 0RF carvedilol 12.5 mg tablet 12.5 mg PO BID Qty: 60 0RF Rx Instructions: must administer with a meal/food atorvastatin 80 mg tablet 80 mg PO QPM Qty: 30 0RF Continued finasteride 5 mg tablet 5 mg PO QDAY glipizide 10 mg Tablet 10 mg PO BID aspirin 81 mg Tablet,Delayed Release (Dr/Ec) 81 mg PO QDAY tamsulosin 0.4 mg capsule 0.4 mg PO DAILY paroxetine HCl 20 mg tablet 20 mg PO DAILY nifedipine 90 mg tablet extended release 90 mg PO QDAY insulin glargine [Lantus Solostar U-100 Insulin] 100 unit/mL (3 mL) insulin pen 30 unit subcut HS Discontinued carvedilol 25 mg tablet 25 mg PO BID Rx Instructions: must administer with a meal/food amlodipine 10 mg tablet 10 mg PO QDAY Referrals: Carol Strickland MD [Primary Care Provider] - Patient/Caregiver Discharge Instructions Print Language: Romansh Stand Alone Forms: Marija Award Info., Patient Portal Info Letter, Work/Release Restrictions Discharge Order Discharge Orders: Discharge (Routine); Ordered 01/27/25 Ordered By: Julio Cope Quality Discharge Quality Measures VTE prophylaxis
--- NOTE | 2025-01-27 11:28 | PC.SS ---
Initial assessment: this is 69 year old male. Patient able to confirm demographic information. Informs he resides at home with grandchildren. Patient identified his son, Peter العلي as his emergency contact. Patient reports being independent with ADL's and denies use of DME at home. Patient PCP is Dr. Strickland. Patient pharmacy is [facility] in [place]. Patient plans to return home upon discharge. No needs identified at this time. Community resources handout provided to the patient. D/c plan: Home Next of kin: sonPeter
[2025-01-27] MEDS: FUROSEMIDE INJ 10 MG/ML VIAL 2 ML 20 MG IVP (12:03)
--- NOTE | 2025-01-27 12:32 | PC.NURSE ---
DISCHARGE PENDING CARDIOLOGY EVALUATION. DR CALLE TO COME THIS EVENING TO SEE PATIENT.
--- NOTE | 2025-01-27 14:24 | PD.RESPRO ---
Documentation for date of: 01/27/25 Subjective Subjective Interval history: No acute overnight events. Complains of slight shortness of breath today, likely from fluid, although satting well, no signs of lower extremity edema or crackles on lung exam, we gave LASIX 20 mg X1. BP 114/88, he is slightly tachycardic with HR 110-120 prior to receiving his meds. Recommended discharge on ASPIRIN and BRILINTA, high-dose STATIN, NIFEDIPINE 90 mg daily, CARVEDILOL 12.5 mg BID, discontinue AMLODIPINE on discharge. To follow-up in office within 1 week. Exam Vital Signs Temp Pulse Resp BP Pulse Ox O2 Del Method 97.0 F 129 H 25 H 114/88 H 98 Room Air 01/27/25 12:00 01/27/25 12:31 01/27/25 12:31 01/27/25 12:03 01/27/25 12:00 01/27/25 12:00 Narrative Exam GENERAL: Obese male, NAD, AAOx3 HEENT: Moist mucosa. Eyes open, symmetrical, & clear CARDIO: Heart RRR, no obvious murmurs PULM: No noted coughing/dyspnea CTA B/L, no R/W/R GI: Abdomen soft, nondistended, no pain on palpation. BSx4 SKIN/MSK/EXT: No wounds/rashes/edema/amputations, no pain on palpation. Pedal pulses present B/L. Mild tenderness and swelling of right antecubital. NEURO: AAOx3, no focal neuro deficits, able to move all 4 extremities Objective Labs 01/27/25 04:43 01/27/25 04:43 Labs: Laboratory Results - last 24 hr 01/27/25 04:43 WBC 8.7 RBC 4.22 L Hgb 12.5 L Hct 36.6 L MCV 87 MCH 29.6 MCHC 34.2 RDW Std Deviation 42.4 Plt Count 184 Neut % (Auto) 79 Lymph % (Auto) 13 [place] % (Auto) 7 Eos % (Auto) 1 Baso % (Auto) 0 Neut # (Auto) 6.8 Lymph # (Auto) 1.1 [place] # (Auto) 0.6 Eos # (Auto) 0.1 Baso # (Auto) 0.0 Immature Gran # (Auto) 0.02 H Absolute Nucleated RBC 0.00 Immature Gran % 0 Nucleated RBC % 0 Sodium 136 Potassium 3.4 Chloride 100 Carbon Dioxide 24.0 Anion Gap 12 BUN 14 Creatinine 1.4 H Estim Creat Clear Calc 75.8 eGFR 54 L BUN/Creatinine Ratio 10 L Glucose [address] Glu mg/dL 151 H Hemoglobin A1c 6.9 H Calculated Osmolality 276 Calcium 8.8 Corrected Calcium 8.9 Phosphorus 3.5 Magnesium 1.8 Total Bilirubin 1.7 H AST 53 H ALT 16 Alkaline Phosphatase 69 Total Protein 6.8 Albumin 3.9 Globulin 2.9 Albumin/Globulin Ratio 1.3 Quality Measures Quality Measures VTE prophylaxis Advance care planning discussed with:: patient Assessment & Plan Assessment Current Active Medications: Generic Name Dose Route Start Last Admin Trade Name Freq PRN Reason Stop Dose Admin Acetaminophen 650 mg 01/26/25 11:39 Acetaminophen 325 Mg Tablet PO 02/25/25 11:38 Q4HR PRN HEADACHE Acetaminophen 650 mg 01/26/25 11:52 Acetaminophen 325 Mg Tablet PO 02/25/25 11:51 Q6H PRN Fever >101.5 Aspirin 81 mg 01/27/25 09:00 01/27/25 08:33 Aspirin Ec 81 Mg Tabec PO 02/26/25 08:59 81 mg QDAY SURINDER Administration Carvedilol 25 mg 01/27/25 09:00 01/27/25 08:40 Carvedilol 12.5 Mg Tablet PO 02/26/25 08:59 25 mg BID SURINDER Administration Dextrose 25 ml 01/26/25 16:34 Dextrose 50%-Water Inj 50 Ml Syringe IV 02/25/25 16:33 Q15MIN PRN BG 50-70 responsive npo pt Dextrose 50 ml 01/26/25 16:34 Dextrose 50%-Water Inj 50 Ml Syringe IV 02/25/25 16:33 Q15MIN PRN BG <50 OR BG <70 & pt unresponsive Finasteride 5 mg 01/27/25 09:00 01/27/25 08:33 Finasteride 5 Mg Tablet PO 02/26/25 08:59 5 mg QDAY SURINDER Administration Glucagon 1 mg 01/26/25 16:34 Glucagon Inj 1 Mg Vial IM Q15MIN PRN BG <70, and no IV access Insulin Human Lispro 0 unit 01/26/25 17:00 01/27/25 12:01 Insulin Lispro (Admelog) 1 Unit/0.01 Ml Unit SC 02/25/25 16:59 2 unit AC SURINDER Administration Protocol Nifedipine 90 mg 01/27/25 09:00 01/27/25 08:40 Nifedipine Xl 30 Mg Tabcr PO 02/26/25 08:59 90 mg QDAY SURINDER Administration Ondansetron HCl 4 mg 01/26/25 11:52 Ondansetron Inj 2 Mg/Ml Inj 2 Ml IV 02/25/25 11:51 Q6H PRN NAUSEA OR VOMITING Protocol Paroxetine HCl 20 mg 01/27/25 09:00 01/27/25 08:34 Paroxetine Hcl 10 Mg Tablet PO 02/26/25 08:59 20 mg DAILY SURINDER Administration Tamsulosin HCl 0.4 mg 01/27/25 09:00 01/27/25 08:33 Tamsulosin Hcl 0.4 Mg Capsule PO 02/26/25 08:59 0.4 mg DAILY SURINDER Administration Ticagrelor 90 mg 01/26/25 21:00 01/27/25 08:33 Ticagrelor 90 Mg Tablet PO 02/25/25 20:59 90 mg BID SURINDER Administration Plan 1-year-old male PMHx of CAD, HTN, T2DM, HLD, depression, osteoarthritis and BPH. A 69-year-old male PMHx of CAD, HTN, T2DM, HLD, depression, osteoarthritis, severe morbiid obesity > 155 kg or > 350 pounds and BPH. He was seen in outpatient cardiology for evaluation of SOB. He had an abnormal NST with decreased uptake in anterior apical, inferior apical and apical segments indicating reversible ischemia, it showed TID 1.0 and EF is 52%. He had LHC on 12/16/24 showing moderate to severe CAD in LAD and moderate disease in RCA. Pt continued to chest pain and SOB and hence he was brought in for elective LHC and PCI today after we received the new equipment. Patient is s/p left heart cath earlier this morning, admitted for close observation and INTEGRILIN drip which was completed. Severe CAD s/p PCI with stent placement in proximal LAD HTN A 69-year-old male with a history of coronary artery disease (CAD), hypertension (HTN), type 2 diabetes mellitus (T2DM), hyperlipidemia (HLD), depression, osteoarthritis, and benign prostatic hyperplasia (BPH) presented with shortness of breath (SOB). His outpatient cardiology evaluation showed an abnormal NST with a TID of 1.0 and an ejection fraction (EF) of 52%. A left heart catheterization (LHC) on 12/16/24 revealed moderate to severe CAD in the left anterior descending (LAD) and moderate disaese of right coronary artery (RCA) PCI could not be done during the cath as left main artery could not be engaged well and images were suboptimal which was only made difficult due to his morbid obesity. Elective LHC and PCI was planned at a later date after ordering the longer diagnostic and guide catheters, other equipment requireed for the procedure. Pt contiued to chest pain and SOB and hence he was brought in for elective LHC and PCI today after we received the new equipment. Given these findings, the patient underwent a complex LHC today, resulting in successful PCI stent placement in the proximal LAD and distal LAD. The distal LAD near the apex had possible thrombus and was admitted to telemetry, completed INTEGRILIN drip for treatment. ? Telemetry monitoring ? Continue ASPIRIN daily and BRILINTA BID ? Continue NIFEDIPINE 30 mg daily ? Continue CARVEDILOL 12.5 mg BID ? Continue high-dose STATIN ? Maintain K > 4.0 and Mg > 2.0 ? Follow-up in office within 1 week of discharge ? Advised to return to ED if new or worsening symptoms including chest pain or shortness of breath HTN - On 3 meds at home. Will restart only nifedipine tonight if need and SBP > 150 CKD stage IIIa BPH Diabetes mellitus Hx of depression Management of rest of the medical conditions as per primary team and other consultants. Thank you for the consult and allowing me to participate in the care of the patient. Cardiology will continue to follow. Case was discussed with attending, Dr. Gonzalez. Trisha Brown DO PGYI
[2025-01-27] MEDS: POTASSIUM CHLORIDE 20 mEq TABCR 40 MEQ PO (18:36)
[2025-01-27] MEDS: carVEDILOL 12.5 MG TABLET PO (19:26)
--- NOTE | 2025-01-27 19:34 | EKG_ITS ---
[facility] Test Date: 2025-01-27 Pat Name: QUANG HERNANDEZ Department: [place]: [facility] [place] Gender: Male Resin Shaver: ROOSEVELT : 1955 Requested By: Katalina Nobles Order Number: [id number] Reading MD: Katalina Nobles Measurements Intervals [place] Rate: 132 P: [place]: QRS: 73 QRSD: 100 T: -23 QT: 304 QTc: 452 Interpretive Statements ATRIAL FLUTTER/TACHYCARDIA WITH RAPID VENTRICULAR RESPONSE INDETERMINATE AXIS PATTERN CONSISTENT WITH PULMONARY DISEASE PROBABLE INFERIOR MYOCARDIAL INFARCTION , OF INDETERMINATE AGE Compared to ECG 01/25/2025 11:31:25 Indeterminate axis now present Myocardial infarct finding now present Sinus rhythm no longer present First degree AV block no longer present Incomplete right bundle-branch block no longer present /store/S0/[id number]/ecg/[id number].pdf
--- NOTE | 2025-01-27 20:03 | PC.NURSE ---
At approximately 0709, patient noted to be in atrial flutter as confirmed via instructor physical education. No complaints of chest pain or discomfort verbalized at this time. BP 100/75, HR 132, Patient alert and oriented ?3, GCS 15. No signs of acute distress observed. Dr. Nobles notified, received verbal order to administer 0900 dose of Carvedilol 12.5 mg PO NOW with STAT EKG.
[2025-01-27] MEDS: ATORVASTATIN CALCIUM 20 MG TABLET 80 MG PO (20:10)
[2025-01-28] VITALS (10 sets, daily range): BP systolic 96–108; BP diastolic 61–81; PULSE 88–133; RESP 12–94; TEMP 36.3–36.7; O2SAT 95–97; BMI 42.3
[2025-01-28] MEDS: INSULIN LISPRO (AdmeLOG) 1 UNIT/0.01 ML UNIT SC ×3 (07:33→17:26)
--- NOTE | 2025-01-28 07:48 | PC.SS ---
Addendum entered by DENISE Palmer 01/28/25 14:41: Rounding note: patient staying due to elevated heart rate and BQ scan pending. Original Note: SS follow up: per bedside RN My, the patient experiencing dizziness and lightheaded yesterday, therefore no d/c. Anticipate d/c home today.
[2025-01-28 08:45] LABS: Basophils % (Auto) 0 % (0-2.5); Eosinophils # (Auto) 0.1 Thou/mm3 (0.0-0.5); Eosinophils % (Auto) 1 % (0-10); Hematocrit 38.1 % (41.0-53.0); Hemoglobin 12.9 g/dL (13.5-16.0); Immature Granulocytes % (Auto) 0 % (0-0); Immature Granulocytes Auto 0.02 Thou/mm3 (0.00-0.00); Lymphocytes # (Auto) 1.1 Thou/mm3 (1.0-4.8); Lymphocytes % (Auto) 13 % (10-50); Mean Corpuscular HGB Conc 33.9 g/dl (31.0-37.0); Mean Corpuscular Hemoglobin 29.7 pg (25.0-35.0); Mean Corpuscular Volume 88 fL (80-100); Monocytes # (Auto) 0.6 Thou/mm3 (0.0-0.8); Monocytes % (Auto) 7 % (0-12); Neutrophils % (Auto) 79 % (37-80); Nucleated Red Blood Cell % 0 /100 WBC (0); Platelet Count 180 Thou/mm3 (140-440); RDW Standard Deviation 43.3 fL (35.1-43.9); Red Blood Count 4.35 Miln/mm3 (4.50-5.90); White Blood Count 8.8 Thou/mm3 (3.8-10.6)
[2025-01-28 09:11] LABS: Alanine Aminotransferase 13 U/L (10-49); Albumin, Serum 3.9 gm/dL (3.4-4.8); Albumin/Globulin Ratio 1.5 (1.2-2.2); Alkaline Phosphatase 66 U/L (46-116); Anion Gap 10 (7-16); Aspartate Amino Transferase 28 U/L (0-34); BUN/Creatinine Ratio 13 Ratio (12-20); Bilirubin,Total 1.9 mg/dL (0.3-1.2); Blood Urea Nitrogen 20 mg/dL (9-23); Calcium 8.2 mg/dL (8.3-10.6); Calcium (Corrected) 8.3 mg/dL (8.5-10.1); Carbon Dioxide 24.1 mMol/L (20.0-31.0); Chloride 105 mMol/L (98-107); Creatinine (Component) 1.6 mg/dL (0.6-1.3); Estimated Creatinine Clearance 66.3 mL/min (>60); Globulin 2.6 gm/dL (2.3-3.5); Glucose 262 mg/dL (74-106); Osmolality,Calculated 289 (275-295); Potassium 3.4 mMol/L (3.4-5.1); Sodium 139 mMol/L (136-145); Total Protein 6.5 gm/dL (5.7-8.2); eGFR 46 See Note
--- NOTE | 2025-01-28 09:17 | XR_ITS ---
Examination: AP chest single view Technique one AP portable upright chest single view Date and time: January 28, 2025 1006 hours Comparison February 19, 2020 INDICATIONS: Shortness of breath beginning 2 days ago. FINDINGS: Normal heart size Subsegmental atelectasis left base No pneumonia or pulmonary edema Prominent osteopenia IMPRESSION: No pneumonia or pulmonary edema
--- NOTE | 2025-01-28 09:23 | XR_ITS ---
Examination: Nuclear medicine pulmonary perfusion ventilatory scan Date and time: January 28, 2025 1336 hours INDICATIONS: Shortness of breath this week TECHNIQUE AND FINDINGS: Perfusion study 4.3 mCi technetium 99m technetium intravenous Ventilation study 44.2 mCi technetium DTPA aerosol Anterior posterior right left lateral right and left oblique matching images obtained No perfusion ventilatory mismatch IMPRESSION: Low probability pulmonary artery emboli
[2025-01-28] MEDS: NIFEdipine XL 30 MG TABCR 90 MG PO (09:47)
[2025-01-28] MEDS: FINASTERIDE 5 MG TABLET PO (09:47)
[2025-01-28] MEDS: Magnesium Sulfate 4 GM Ivpb 4 GM/50 ML BAG IV (09:47)
[2025-01-28] MEDS: TICAGRELOR 90 MG TABLET PO (09:51)
[2025-01-28] MEDS: TAMSULOSIN HCL 0.4 MG CAPSULE PO (09:51)
[2025-01-28] MEDS: ASPIRIN EC 81 MG TABEC PO (09:51)
[2025-01-28] MEDS: PARoxetine HCL 10 MG TABLET 20 MG PO (09:51)
[2025-01-28] MEDS: POTASSIUM CHLORIDE 20 mEq TABCR 40 MEQ PO (09:52)
[2025-01-28] MEDS: carVEDILOL 12.5 MG TABLET PO (09:52)
--- NOTE | 2025-01-28 14:00 | ESOP_ITS ---
Cardiac Cath Procedure Procedure Name DATE OF OPERATION: 01/26/2025 PROCEDURE PERFORMED: 1. Successful high complex PCI of the severe 90% stenosis of proximal LAD with 3.0 x 22 mm Synergy BOLA stent with excellent results and JOHN III flow. Additional PCI performed to the distal LAD with a 2.25 x 18 mm Synergy BOLA stent with no return of flow. 2. Ultrasound-guided access of the right femoral artery 3. Conscious sedation for 45 minutes 4. Successful closure of the right femoral artery access with Angio-Seal TAPPER HELPER: Roque Gonzalez MD Procedure Narrative HISTORY AND INDICATIONS: A 69-year-old male with PMHx of Severe CAD in LAD and moderate disease in RCA by [facility] 12/16/24, HTN, DM, history of smoking, HLD, depression, osteoarthritis and BPH initially presented to my office for evaluation of shortness of breath. Patient had ischemic work up and showed decreased uptake in the inferior and inferoapical segments, which are worse with stress compared to the rest, cardiac catheterization was performed on 12/16/2024 which showed severe CAD involving the proximal LAD, moderate disease of the RCA as well as mild disease of the LCx and left main. PCI could not be performed due to unavailability of 110 cm guide catheters for appropriate engagement of the left main artery. Patient was treated medically, we ordered all 110 cm guiding catheters and was brought in for an elective PCI of the LAD. Patient was explained the risk benefits and alternatives of performing a left heart cardiac catheterization including the risk of bleeding, heart attack, stroke and in detail and the agreeable for the procedure. Consent signed, placed in the chart and H&P updated. DESCRIPTION OF PROCEDURE: The patient was brought to the cardiac catheterization lab and all aseptic precautions were taken. Patient was given Versed and fentanyl for moderate conscious sedation. 10 ml of lidocaine was given to the right groin area. The right femoral artery was accessed via the ultrasound guidance as well as micropuncture technique. Patient was given heparin weight-based dosage of heparin drip and his ACT was greater than 250 throughout the procedure. Patient also received aspirin 325 mg as well as Brilinta 180 mg prior to the procedure. INTERVENTION: A 6 [place]ar[place]uan femoral sheath was introduced and 110 cm 6 [place]ar[place]uan JL 4 guide catheter was used to engage the left main artery but was unsuccessful. We then used an 110 cm 6 [place] EBU 4 guide catheter but it could not engage the left main artery valve. Eventually 110 cm AL-1 guide catheter was used to to engage the left main artery but we were still close to the left main ostium. We then used 6 [place] Guidezilla II GC extension to actually engage the left main artery. Patient was given weight-based heparin and ACT was greater than 250 throughout the procedure. A run-through wire was used to cross lesions in the LAD without any complications. We then used a 2.5 x 12 mm Euphora Medtronic balloon to perform the initial dilatation but even prior to performing dilation patient had acute closure of the LAD from the mid LAD and eventually up to the proximal LAD. 2.5 x 50 mm semicompliant balloon was removed and then a 2.0 x 15 mm Euphora semicompliant balloon was advanced into the mid LAD and multiple dilations were performed from the mid to distal LAD to proximal LAD at variable 6 to 12 maggy inflations. There was still no flow noted. We removed the 2.0 x 15 mm balloon and a new 2.0 x 15 balloon was used and again multiple inflations was performed and eventually flow was restored in the in the LAD from the proximal to the distal LAD but the distal LAD was still 100% occluded. Immediately a 3.0 x 22 mm [place] Medtronic stent was successfully deployed in the proximal LAD with excellent results and JOHN-3 flow. Then we used 2.0 x 15 mm balloon and performed dilatation and eventually 2.25 x 18 mm Bello BOLA stent was placed in the distal LAD at 12 maggy but no significant flow was noted. Patient was hemodynamically stable. Patient received a total of 500 mcg of Forest-Synephrine for hemodynamic support and eventually did not require any further pressor support. Patient was placed on Integrilin drip for possible thrombotic occlusion of the distal LAD and admitted to the hospital. Right iliofemoral angiogram was performed and showed appropriate access of the right femoral acesss the lower third of the femoral head. 6 [place]ar[place]uan Angio-Seal was deployed with hemostasis of the right femoral artery and there was to place pedal pulses. Patient will be monitored in the cardiac Elevator Starter for the next 2 to 3 hours and will be sent back to floor to continue monitoring. Proximal LAD: Preintervention stenosis 90% with JOHN-3 flow Postintervention 0% stenosis with JOHN-3 flow Distal LAD: Preintervention stenosis 100% with JOHN 0 flow Postintervention 100% stenosis with JOHN 0 flow Complications: None Specimens: None Blood loss: Estimated 10 ml Summary/findings: 1. Elective PCI of severe CAD involving the the proximal LAD - Successful high complex PCI performed to the proximal LAD severe 90% stenosis with 3.0 x 22 mm Synergy BOLA stent with excellent results and JOHN-3 flow. Additional PCI performed with 2.25 x 18 mm Synergy BOLA stent in the distal LAD with no return of flow. 2. Patient placed on Integrilin drip after bolus and will continue for the next 12 hours for possible thrombotic occlusion of the distal LAD. Recommendations: 1. Admit the patient to the hospital inpatient service for continuing the Integrilin drip for next 12 hours given possible thrombotic occlusion of the distal LAD. Patient had a high complex PCI requiring significant contrast volume and will need renal function monitoring given his CKD stage II-III. 2. Recommend to continue aggressive medical management with aspirin 81 mg once daily, Brilinta 90 mg twice daily, high intensity statin along with beta-chance if blood pressure is permissible 3. Aggressive risk factor modification and aggressive medical treatment of hypertension diabetes and hyperlipidemia. 4. Patient recommended to not lift more than 5 pounds for the next 7 to 10 days and follow-up with me in the office in 7 days. Roque Gonzalez MD Interventional Cardiology.
--- NOTE | 2025-01-28 14:22 | ESPR_ITS ---
Documentation for date of: 01/28/25 Subjective Subjective Interval history: Patient seen today at the bedside found awake, alert, orientedx3. Overnight was reported to have developed atrial flutter however on review of telemetry sinus tachycardia. Vitals and labs reviewed. Patient continues with shortness of breath and tachycardia, chest x-ray was ordered no signs of pneumonia or fluid overload, VQ scan was ordered will await results. Exam Vital Signs Temp Pulse Resp BP Pulse Ox O2 Del Method 97.3 F 90 21 H 96/71 96 Room Air 01/28/25 12:00 01/28/25 12:00 01/28/25 12:00 01/28/25 12:00 01/28/25 12:00 01/28/25 12:00 Narrative Exam GENERAL: Obese male, NAD, AAOx3 HEENT: Moist mucosa. Eyes open, symmetrical, & clear CARDIO: Heart RRR, no obvious murmurs PULM: No noted coughing/dyspnea CTA B/L, no R/W/R GI: Abdomen soft, nondistended, no pain on palpation. BSx4 SKIN/MSK/EXT: No wounds/rashes/edema/amputations, no pain on palpation. Pedal pulses present B/L. Mild tenderness and swelling of right antecubital. NEURO: AAOx3, no focal neuro deficits, able to move all 4 extremities Objective Labs 01/28/25 08:20 01/28/25 08:20 Labs: Laboratory Results - last 24 hr 01/28/25 08:20 WBC 8.8 RBC 4.35 L Hgb 12.9 L Hct 38.1 L MCV 88 MCH 29.7 MCHC 33.9 RDW Std Deviation 43.3 Plt Count 180 Neut % (Auto) 79 Lymph % (Auto) 13 [place] % (Auto) 7 Eos % (Auto) 1 Baso % (Auto) 0 Neut # (Auto) 7.0 Lymph # (Auto) 1.1 [place] # (Auto) 0.6 Eos # (Auto) 0.1 Baso # (Auto) 0.0 Immature Gran # (Auto) 0.02 H Absolute Nucleated RBC 0.00 Immature Gran % 0 Nucleated RBC % 0 Sodium 139 Potassium 3.4 Chloride 105 Carbon Dioxide 24.1 Anion Gap 10 BUN 20 Creatinine 1.6 H Estim Creat Clear Calc 66.3 eGFR 46 L BUN/Creatinine Ratio 13 Glucose 262 H D Calculated Osmolality 289 Calcium 8.2 L Corrected Calcium 8.3 L Magnesium 2.0 Total Bilirubin 1.9 H AST 28 ALT 13 Alkaline Phosphatase 66 Total Protein 6.5 Albumin 3.9 Globulin 2.6 Albumin/Globulin Ratio 1.5 Quality Measures Quality Measures VTE prophylaxis Advance care planning discussed with:: patient Assessment & Plan Assessment Current Active Medications: Generic Name Dose Route Start Last Admin Trade Name Freq PRN Reason Stop Dose Admin Acetaminophen 650 mg 01/26/25 11:39 Acetaminophen 325 Mg Tablet PO 02/25/25 11:38 Q4HR PRN HEADACHE Acetaminophen 650 mg 01/26/25 11:52 Acetaminophen 325 Mg Tablet PO 02/25/25 11:51 Q6H PRN Fever >101.5 Aspirin 81 mg 01/27/25 09:00 01/28/25 09:51 Aspirin Ec 81 Mg Tabec PO 02/26/25 08:59 81 mg QDAY SURINDER Administration Atorvastatin Calcium 80 mg 01/27/25 21:00 01/27/25 20:10 Atorvastatin Calcium 20 Mg Tablet PO 02/26/25 20:59 80 mg HS SURINDER Administration Carvedilol 12.5 mg 01/27/25 21:00 01/28/25 09:52 Carvedilol 12.5 Mg Tablet PO 02/26/25 20:59 12.5 mg BID SURINDER Administration Dextrose 25 ml 01/26/25 16:34 Dextrose 50%-Water Inj 50 Ml Syringe IV 02/25/25 16:33 Q15MIN PRN BG 50-70 responsive npo pt Dextrose 50 ml 01/26/25 16:34 Dextrose 50%-Water Inj 50 Ml Syringe IV 02/25/25 16:33 Q15MIN PRN BG <50 OR BG <70 & pt unresponsive Finasteride 5 mg 01/27/25 09:00 01/28/25 09:47 Finasteride 5 Mg Tablet PO 02/26/25 08:59 5 mg QDAY SURINDER Administration Glucagon 1 mg 01/26/25 16:34 Glucagon Inj 1 Mg Vial IM Q15MIN PRN BG <70, and no IV access Insulin Human Lispro 0 unit 01/26/25 17:00 01/28/25 12:07 Insulin Lispro (Admelog) 1 Unit/0.01 Ml Unit SC 02/25/25 16:59 2 unit AC SURINDER Administration Protocol Nifedipine 90 mg 01/27/25 09:00 01/28/25 09:47 Nifedipine Xl 30 Mg Tabcr PO 02/26/25 08:59 90 mg QDAY SURINDER Administration Ondansetron HCl 4 mg 01/26/25 11:52 Ondansetron Inj 2 Mg/Ml Inj 2 Ml IV 02/25/25 11:51 Q6H PRN NAUSEA OR VOMITING Protocol Paroxetine HCl 20 mg 01/27/25 09:00 01/28/25 09:51 Paroxetine Hcl 10 Mg Tablet PO 02/26/25 08:59 20 mg DAILY SURINDER Administration Tamsulosin HCl 0.4 mg 01/27/25 09:00 01/28/25 09:51 Tamsulosin Hcl 0.4 Mg Capsule PO 02/26/25 08:59 0.4 mg DAILY SURINDER Administration Ticagrelor 90 mg 01/26/25 21:00 01/28/25 09:51 Ticagrelor 90 Mg Tablet PO 02/25/25 20:59 90 mg BID SURINDER Administration Plan 69-year-old male smoker with past medical history of moderate to severe CAD in LAD and RCA by [facility] 12/16/24, Hypertension, Diabetes, Hyperlipidemia, depression, osteoarthritis and BPH. Patient initially presented to the china decorator office for evaluation of shortness of breath. Patient had ischemic work up and showed decreased uptake in the inferior and inferoapical segments, which are worse with stress compared to the rest, patient was brought in for an elective cardiac catheterization. Patient had Left heart cardiac catheterization including right, left coronary angiograms and left ventriculogram on 12/16/2024. Patient had complex PCI today with stent placement in LAD after which patient was admitted to telemetry for observation on integrillin drip after complex PCI with stent placement in proximal LAD. #Coronary artery disease #s/p PCI with stent placement in proximal LAD #Sinus tachycardia #?Pulmonary embolism #hypertension Cath 12/16/2024 Left ventricular ejection fraction was normal at 60 to 65% without any regional wall motion abnormalities. LVEDP was normal at 9 mmHg. There was no significant transvalvular aortic gradient. Right dominant circulation. Left main artery is a large-caliber vessel without any significant stenosis. LAD is a large sized artery with a medium size diagonal and without show any significant disease. LCx is a large sized artery with medium OM1 and small OM2 without any significant disease. RCA is a large artery with medium RPDA and RPL without any significant disease. Patient is tachycardic and continues with SOB, will order V/Q scan - pending V/Qscan - pending cath report - monitor telemetry - Keep K>4, Mg>2 - ASA and Brillinta loading doses given - resumed Aspirin 81mg and brillinta 90mg bid in am - resumed anti hypertensives #CKD stage IIIa - renally dose medicaiton - avoid nephrotoxins #BPH - on tamsulosin and finesteride #Diabetes mellitus - SSI - hypoglycemia protocol in place #Hx of depression -resumed paroxetine as taken at home Disposition:tele, obs s/p pci Fluids: NS Feeding: Cardiac diet Thrombo prophylaxis: Gastric Ulcer prophylaxis: none CODE STATUS: Full code Case discussed with my attending Dr. Neha Cope MD PGY-1 Attending Provider Attestation/Addendum Charlotte Alvarez, , attest that I was physically present for the humphries portions of the service and evaluated the patient with the resident and I reviewed and discussed the case with the resident and agree with the resident's findings and plans of care as documented above Patient seen eval this a.m. He states that he is feeling well. Patient is resting comfortably bed. He denies any chest pain or shortness of breath. Patient is anxious to go home. Due to persistent sinus tachycardia as noted on monitor technician, it was recommended to order a VQ scan per cardiology. Chest x-ray shows no pneumonia or pulmonary edema. Will follow-up VQ scan and further cardiology recs. Anticipate discharge in the next 24 to 48 hours otherwise.
--- NOTE | 2025-01-28 16:20 | ESDS_ITS ---
<Statement entered by Charlotte Solomon DO - 01/29/25 08:30> I, Charlotte Solomon DO, attest that I was physically present for the humphries portions of the service and evaluated the patient with the resident and I reviewed and discussed the case with the resident and agree with the resident's findings and plans of care as documented above Planned Discharge Date 01/28/25 DS: Providers Provider Date of admission: 01/28/25 13:40 Primary care physician: Carol Strickland MD Admitting Provider: Marti King MD Attending Provider on Admission: Charlotte Solomon DO Attending Provider on DC: Julio Cope MD Discharging Provider: Julio Cope MD DS: Diagnosis Problem List Completed Was Problem List Reviewed/Reconciled?: Yes Hospital Course Hospital Course Hospital course: 69-year-old male smoker with past medical history of moderate to severe CAD in LAD and RCA by [facility] 12/16/24, Hypertension, Diabetes, Hyperlipidemia, depression, osteoarthritis and BPH. 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 He had LHC on 12/16/24 showing moderate to severe CAD in LAD and moderate disease in RCA. Pt continued to chest pain and SOB and hence he was brought in for elective LHC and PCI today after we received the new equipment. Patient is s/p left heart cath with stent placement in proximal LAD, admitted for close observation and INTEGRILIN drip which was com pleted. After which patient was monitored overnight, was diuresed and started on his home medications which were adjusted at the time of discharge. At this time patient is medically stable for discharge. Follow up with primary care physician Dr. Strickland within 1 week of discharge. Follow up with cardiology Dr. Gonzalez within 1 weeks of discharge. No lifting more than 5 pounds for the next 7 to 10 days. You have been prescribed Brillinta take this to reduce risk of stent thrombosis. Your carvedilol dose was adjusted to 12.5mg BID. You have been prescribed atorvastatin 80mg HS. Amlodipine has been discontinued please do not take this medication as well as glipizide has been discontinued. Please continue the rest of your medications as prescribed. Should any symptoms recur or worsen patient is instructed to return to the ED. Problem List: Severe CAD s/p PCI with stent placement in proximal LAD Hypertension CKD stage IIIa BPH Diabetes mellitus Hx of depression Case discussed with my attending Dr. Neha Cope MD PGY-1 Status at Discharge Functional status at discharge: independent ambulation Overall status at discharge: patient is back to baseline Time Spent with Patient Time attestation: Total time spent providing and/or coordinating discharge services: Time spent: Greater than 30 minutes Exam Vital Signs Temp Pulse Resp BP Pulse Ox O2 Del Method 97.3 F 90 21 H 96/71 96 Room Air 01/28/25 12:00 01/28/25 12:00 01/28/25 12:00 01/28/25 12:00 01/28/25 12:00 01/28/25 12:00 Narrative Exam Physical Exam GENERAL: NAD, AAOx3 HEENT: Moist mucosa. Eyes open, symmetrical, & clear CARDIO: Heart RRR, no obvious murmurs PULM: No noted coughing/dyspnea CTA B/L, no R/W/R GI: Abdomen soft, nondistended, no pain on palpation. BSx4 SKIN/MSK/EXT: No wounds/rashes/edema/amputations, no pain on palpation. Pedal pulses present B/L NEURO: AAOx3, no focal neuro deficits, able to move all 4 extremities Discharge Plan Plan Patient Disposition: HOME (Self Care) Care Plan Goals: Follow up with primary care physician Dr. Strickland within 1 week of discharge Follow up with cardiology within 1 weeks of discharge. No lifting more than 5 pounds for the next 7 to 10 days You have been prescribed atorvastatin 80mg qpm, brillinta to prevent stent thrombosis Your carvedilol dose has been adjusted to 12.5mg BID Please continue the rest of your medications as prescribed. Should any symptoms recur or worsen patient is instructed to return to the ED. Prescriptions/Referrals Prescriptions/Med Rec: New ticagrelor [Brilinta] 90 mg tablet 90 mg PO BID Qty: 60 0RF carvedilol 12.5 mg tablet 12.5 mg PO BID Qty: 60 0RF Rx Instructions: must administer with a meal/food atorvastatin 80 mg tablet 80 mg PO QPM Qty: 30 0RF Continued finasteride 5 mg tablet 5 mg PO QDAY aspirin 81 mg Tablet,Delayed Release (Dr/Ec) 81 mg PO QDAY tamsulosin 0.4 mg capsule 0.4 mg PO DAILY paroxetine HCl 20 mg tablet 20 mg PO DAILY nifedipine 90 mg tablet extended release 90 mg PO QDAY insulin glargine [Lantus Solostar U-100 Insulin] 100 unit/mL (3 mL) insulin pen 30 unit subcut HS Discontinued glipizide 10 mg Tablet 10 mg PO BID carvedilol 25 mg tablet 25 mg PO BID Rx Instructions: must administer with a meal/food amlodipine 10 mg tablet 10 mg PO QDAY Referrals: Carol Strickland MD [Primary Care Provider] - Patient/Caregiver Discharge Instructions Print Language: Bangladeshi Stand Alone Forms: Marija Award Info., Patient Portal Info Letter, Work/Release Restrictions Discharge Order Discharge Orders: Discharge (Routine); Ordered 01/28/25 Ordered By: Julio Cope Quality Discharge Quality Measures VTE prophylaxis
--- NOTE | 2025-01-28 17:47 | ESPR_ITS ---
Documentation for date of: 01/28/25 Subjective Subjective Interval history: Overnight he had AFIB/Flutter with RVR, HR 140s, resolved spontaneously. Patient remained asymptomatic without chest pain or worsening shortness of breath. Today heart rate sustained in the 130s, complained of persistent SOB, not worse from yesterday, however, satting well on room air. CXR did not show any abnormalities except for mild atelectasis. V/Q scan was done showing low probability pulmonary artery emboli. HR currently controlled. CR slightly up at 1.6, BUN 20, remainder CMP relatively normal. CBC stable. Exam Vital Signs Temp Pulse Resp BP Pulse Ox O2 Del Method 97.7 F 88 21 H 108/61 95 Room Air 01/28/25 16:00 01/28/25 16:00 01/28/25 16:00 01/28/25 16:00 01/28/25 16:00 01/28/25 16:00 Narrative Exam GENERAL: Obese male, NAD, AAOx3 HEENT: Moist mucosa. Eyes open, symmetrical, & clear CARDIO: Heart RRR, no obvious murmurs PULM: No noted coughing/dyspnea CTA B/L, no R/W/R GI: Abdomen soft, nondistended, no pain on palpation. BSx4 SKIN/MSK/EXT: No wounds/rashes/edema/amputations, no pain on palpation. Pedal pulses present B/L. Mild tenderness and swelling of right antecubital. NEURO: AAOx3, no focal neuro deficits, able to move all 4 extremities Objective Labs 01/28/25 08:20 01/28/25 08:20 Labs: Laboratory Results - last 24 hr 01/28/25 08:20 WBC 8.8 RBC 4.35 L Hgb 12.9 L Hct 38.1 L MCV 88 MCH 29.7 MCHC 33.9 RDW Std Deviation 43.3 Plt Count 180 Neut % (Auto) 79 Lymph % (Auto) 13 [place] % (Auto) 7 Eos % (Auto) 1 Baso % (Auto) 0 Neut # (Auto) 7.0 Lymph # (Auto) 1.1 [place] # (Auto) 0.6 Eos # (Auto) 0.1 Baso # (Auto) 0.0 Immature Gran # (Auto) 0.02 H Absolute Nucleated RBC 0.00 Immature Gran % 0 Nucleated RBC % 0 Sodium 139 Potassium 3.4 Chloride 105 Carbon Dioxide 24.1 Anion Gap 10 BUN 20 Creatinine 1.6 H Estim Creat Clear Calc 66.3 eGFR 46 L BUN/Creatinine Ratio 13 Glucose 262 H D Calculated Osmolality 289 Calcium 8.2 L Corrected Calcium 8.3 L Magnesium 2.0 Total Bilirubin 1.9 H AST 28 ALT 13 Alkaline Phosphatase 66 Total Protein 6.5 Albumin 3.9 Globulin 2.6 Albumin/Globulin Ratio 1.5 Quality Measures Quality Measures VTE prophylaxis Advance care planning discussed with:: patient Assessment & Plan Assessment Current Active Medications: Generic Name Dose Route Start Last Admin Trade Name Freq PRN Reason Stop Dose Admin Acetaminophen 650 mg 01/26/25 11:39 Acetaminophen 325 Mg Tablet PO 02/25/25 11:38 Q4HR PRN HEADACHE Acetaminophen 650 mg 01/26/25 11:52 Acetaminophen 325 Mg Tablet PO 02/25/25 11:51 Q6H PRN Fever >101.5 Aspirin 81 mg 01/27/25 09:00 01/28/25 09:51 Aspirin Ec 81 Mg Tabec PO 02/26/25 08:59 81 mg QDAY SURINDER Administration Atorvastatin Calcium 80 mg 01/27/25 21:00 01/27/25 20:10 Atorvastatin Calcium 20 Mg Tablet PO 02/26/25 20:59 80 mg HS SURINDER Administration Carvedilol 12.5 mg 01/27/25 21:00 01/28/25 09:52 Carvedilol 12.5 Mg Tablet PO 02/26/25 20:59 12.5 mg BID SURINDER Administration Dextrose 25 ml 01/26/25 16:34 Dextrose 50%-Water Inj 50 Ml Syringe IV 02/25/25 16:33 Q15MIN PRN BG 50-70 responsive npo pt Dextrose 50 ml 01/26/25 16:34 Dextrose 50%-Water Inj 50 Ml Syringe IV 02/25/25 16:33 Q15MIN PRN BG <50 OR BG <70 & pt unresponsive Finasteride 5 mg 01/27/25 09:00 01/28/25 09:47 Finasteride 5 Mg Tablet PO 02/26/25 08:59 5 mg QDAY SURINDER Administration Glucagon 1 mg 01/26/25 16:34 Glucagon Inj 1 Mg Vial IM Q15MIN PRN BG <70, and no IV access Insulin Human Lispro 0 unit 01/26/25 17:00 01/28/25 17:26 Insulin Lispro (Admelog) 1 Unit/0.01 Ml Unit SC 02/25/25 16:59 1 unit AC SURINDER Administration Protocol Nifedipine 90 mg 01/27/25 09:00 01/28/25 09:47 Nifedipine Xl 30 Mg Tabcr PO 02/26/25 08:59 90 mg QDAY SURINDER Administration Ondansetron HCl 4 mg 01/26/25 11:52 Ondansetron Inj 2 Mg/Ml Inj 2 Ml IV 02/25/25 11:51 Q6H PRN NAUSEA OR VOMITING Protocol Paroxetine HCl 20 mg 01/27/25 09:00 01/28/25 09:51 Paroxetine Hcl 10 Mg Tablet PO 02/26/25 08:59 20 mg DAILY SURINDER Administration Tamsulosin HCl 0.4 mg 01/27/25 09:00 01/28/25 09:51 Tamsulosin Hcl 0.4 Mg Capsule PO 02/26/25 08:59 0.4 mg DAILY SURINDER Administration Ticagrelor 90 mg 01/26/25 21:00 01/28/25 09:51 Ticagrelor 90 Mg Tablet PO 02/25/25 20:59 90 mg BID SURINDER Administration Plan 1-year-old male PMHx of CAD, HTN, T2DM, HLD, depression, osteoarthritis and BPH. A 69-year-old male PMHx of CAD, HTN, T2DM, HLD, depression, osteoarthritis, severe morbiid obesity > 155 kg or > 350 pounds and BPH. He was seen in outpatient cardiology for evaluation of SOB. He had an abnormal NST with decreased uptake in anterior apical, inferior apical and apical segments indicating reversible ischemia, it showed TID 1.0 and EF is 52%. He had LHC on 12/16/24 showing moderate to severe CAD in LAD and moderate disease in RCA. Pt continued to chest pain and SOB and hence he was brought in for elective LHC and PCI today after we received the new equipment. Patient is s/p left heart cath earlier this morning, admitted for close observation and INTEGRILIN drip which was completed. Severe CAD s/p PCI with stent placement in proximal LAD HTN A 69-year-old male with a history of coronary artery disease (CAD), hypertension (HTN), type 2 diabetes mellitus (T2DM), hyperlipidemia (HLD), depression, osteoarthritis, and benign prostatic hyperplasia (BPH) presented with shortness of breath (SOB). His outpatient cardiology evaluation showed an abnormal NST with a TID of 1.0 and an ejection fraction (EF) of 52%. A left heart catheterization (LHC) on 12/16/24 revealed moderate to severe CAD in the left anterior descending (LAD) and moderate disaese of right coronary artery (RCA) PCI could not be done during the cath as left main artery could not be engaged well and images were suboptimal which was only made difficult due to his morbid obesity. Elective LHC and PCI was planned at a later date after ordering the longer diagnostic and guide catheters, other equipment requireed for the procedure. Pt contiued to chest pain and SOB and hence he was brought in for elective LHC and PCI today after we received the new equipment. Given these findings, the patient underwent a complex LHC today, resulting in successful PCI stent placement in the proximal LAD and distal LAD. The distal LAD near the apex had possible thrombus and was admitted to telemetry, completed INTEGRILIN drip for treatment. ? Telemetry monitoring ? Continue ASPIRIN daily and BRILINTA BID ? Continue NIFEDIPINE 30 mg daily ? Continue CARVEDILOL 12.5 mg BID ? Continue high-dose STATIN ? Maintain K > 4.0 and Mg > 2.0 ? Follow-up in office within 1 week of discharge ? Advised to return to ED if new or worsening symptoms including chest pain or shortness of breath Tacyhycardia (resolved) Tachycardic overnight, had non-stained episode of AFIB/RVR HR 140s. This AM HR max 130s. Remained asymptomatic without chest pain or palpitation, although endorse mild SOB not worse than previously, satting well on room air. CXR showed mild left unilateral atelectasis. VQ scan showed low suspicion for pulmonary embolism. HR improved, currently 80s. Remains in symptomatic. HTN - On 3 meds at home. Will restart only nifedipine tonight if need and SBP > 150 CKD stage IIIa BPH Diabetes mellitus Hx of depression Management of rest of the medical conditions as per primary team and other consultants. Thank you for the consult and allowing me to participate in the care of the patient. Cardiology will continue to follow. Case was discussed with attending, Dr. Gonzalez. Trisha Brown DO PGYI
== END 2025-01-28 19:00 | disposition home or self-care (01) | DRG 322 ==
LOC: SERHOLD 13:28 → S2NX 19:03 → SERHOLD 01-28 13:45 → S2NX 01-28 13:46
PROVIDERS: Student in an Organized Health Care Education/Training Program; Admitting Provider Internal Medicine; PCP Internal Medicine; Referring Provider Internal Medicine Cardiovascular Disease; Visit Provider Internal Medicine
PROC: 027035Z Dilation of Coronary Artery, One Artery with Two Drug-eluting Intraluminal Devices, Percutaneous Approach (ICD-10-PCS; principal; 2025-01-26 07:30)
PROC: 027035Z Dilation of Coronary Artery, One Artery with Two Drug-eluting Intraluminal Devices, Percutaneous Approach (ICD-10-PCS; 2025-01-26 07:30)
DX: I25.10 Atherosclerotic heart disease of native coronary artery without angina pectoris (principal); N17.9 Acute kidney failure, unspecified; I48.92 Unspecified atrial flutter; J98.11 Atelectasis; Z68.41 Body mass index [BMI] 40.0-44.9, adult; M19.90 Unspecified osteoarthritis, unspecified site; F32.A Depression, unspecified; F17.200 Nicotine dependence, unspecified, uncomplicated; E78.5 Hyperlipidemia, unspecified; I12.9 Hypertensive chronic kidney disease with stage 1 through stage 4 chronic kidney disease, or unspecified chronic kidney disease; N18.31 Chronic kidney disease, stage 3a; E11.22 Type 2 diabetes mellitus with diabetic chronic kidney disease; N40.0 Benign prostatic hyperplasia without lower urinary tract symptoms; Z95.5 Presence of coronary angioplasty implant and graft; E66.01 Morbid (severe) obesity due to excess calories; I48.91 Unspecified atrial fibrillation; Z79.899 Other long term (current) drug therapy; I44.0 Atrioventricular block, first degree
CPT/HCPCS: 36415; 71045; 78582; 80048; 80053; 83036; 83735; 84100; 85025; 85347; 85610; 85730; 93005; 99152; 99153; A4649; A9539; A9540; C1725; C1760; C1769; C1874; C1887; C1894; G0378; J0153; J0171; J0282; J0461; J1265; J1327; J1643; J1815; J1938; J2250; J2270; J2310; J2371; J2405; J3010; J3475; J3490; J7030; J7040; Q9967; A9270; J2305